=== PATIENT | female | born 1960 | race American Indian/Alaskan Native ===

== ENCOUNTER 2016-09-27 06:57 | Day surgery (SDC) | payer OTHER, MEDICARE ==
[~2016-09-27 06:57] MED LIST: ANCEF/STERILE WATER 2 GM/20 ML 2 GM/20 ML SYRINGE IV NR; NACL 0.9% 1000 ML 1,000 ML IV SCH
[2016-09-27 08:00] LABS: Hematocrit 25.7 % (30.3-42.9); Hemoglobin 8.4 gm/dl (10.1-14.3); Mean Corpuscular HGB Conc 33 % (30-34); Mean Corpuscular Hemoglobin 31 pg (28-32); Mean Corpuscular Volume 94 fl (79-97); Platelet Count 358 K/mm3 (140-440); Red Blood Count 2.73 M/mm3 (3.65-5.03); White Blood Count 4.8 K/mm3 (4.5-11.0)
[2016-09-27] MEDS ORDERED: NACL 0.9% 500 ML 500 ML IV SCH (08:00)
[2016-09-27 08:06] LABS: Red Cell Distribution Width 24.1 % (13.2-15.2)
[2016-09-27 08:13] LABS: INR 4.06 (0.87-1.13)
[2016-09-27 08:14] LABS: Partial Thromboplastin Time 44.6 Sec. (24.2-36.6)
[2016-09-27 08:15] LABS: Anion Gap 14 mmol/L; BUN/Creatinine Ratio 11.66; Blood Urea Nitrogen 7 mg/dL (7-17); Calcium 8.3 mg/dL (8.4-10.2); Carbon Dioxide 26 mmol/L (22-30); Chloride 108.6 mmol/L (98-107); Glucose 127 mg/dL (65-100); Potassium 3.3 mmol/L (3.6-5.0); Sodium 145 mmol/L (137-145)
[2016-09-27] MEDS ORDERED: HEPARIN 10,000 UNITS/10 ML ONE (09:11)
[2016-09-27] MEDS ORDERED: XYLOCAINE 2% INFILTRATI ONE (09:11)
[2016-09-27] MEDS ORDERED: HEPARIN/NS 5000 UNIT/500ML(CATH LAB) 1,000 ML IR ONE (09:11)
[2016-09-27] MEDS ORDERED: SUBLIMAZE ONE ×2 (09:12→10:17)
[2016-09-27] MEDS ORDERED: VERSED ONE (09:12)
--- NOTE | 2016-09-27 10:31 | Short Stay Summary ---
Short Stay Documentation Date of service: 09/27/16 Narrative H&P: See H&P - History H&P: obtained from office - Allergies and Medications Current Medications: Allergies banana Allergy (Verified 08/02/16 07:33) Rash peanut Allergy (Verified 08/02/16 07:33) Rash Home Medications Medication Instructions Recorded Confirmed Last Taken Type Insulin Lispro [HumaLOG VIAL] 3 unit SQ AC 08/02/16 09/27/16 09/26/16 History Lipase/Protease/Amylase [Creon Dr 2 tab PO AC 08/02/16 09/27/16 09/26/16 History 24,000 Units Capsule] Pegfilgrastim [Neulasta] 6 mg SQ QMONTH 08/02/16 09/27/16 08/27/16 History Sucralfate 1 tab PO AC 08/02/16 09/27/16 09/26/16 History Potassium Chloride [Klor-Con M20] 20 meq PO DAILY 09/27/16 09/27/16 09/20/16 History Rivaroxaban [Xarelto] 10 mg PO QDAY 09/27/16 09/27/16 09/27/16 History Active Medications Cefazolin Sodium (Ancef/Sterile Water 2 Gm/20 Ml) 2 gm in 20 mls @ 80 mls/hr IV PREOP NR PRN Reason: Protocol Stop: 09/27/16 23:59 Sodium Chloride (Nacl 0.9% 500 Ml) 500 mls @ 50 mls/hr IV DIRECT KIRSTEN Last Admin: 09/27/16 08:09 Dose: 50 mls/hr - Brief post op/procedure progress note Date of procedure: 09/27/16 Pre-op diagnosis: Bilateral Lower Extremity Swelling Post-op diagnosis: same Procedure: 1. Ultrasound-Guided Access Left Femoral Vein 2. Ultrasound-Guided Access Right Femoral Vein 3. Bilateral Lower Extremity Venogram With Inferior Vena Cavogram 4. Angioplasty and Stent of Right Common Iliac Vein with 18 x 90 Wall Stent and 14 x 40 Balloon 5. Angioplasty and Stent of Left Common Iliac Vein with 18 x 90 Wall Stent and 16 x 40 Balloon 6. Angioplasty and Stent of Left External Leg Vein With 18 x 60 Wall Stent and 16 x 40 Balloon 7. Radiological Supervision with Interpretation Anesthesia: local, other (IV sedation) Surgeon: DU RODRÍGUEZ Estimated blood loss: minimal Pathology: none Condition: stable - Disposition Condition at discharge: Good Disposition: DISCHARGED TO HOME OR SELFCARE Short Stay Discharge Plan Activity: other (no strenuous activity for 24 hours) Wound: remove dressing (24 hours) Follow up with: DU RODRÍGUEZ MD [Staff Physician] - 14 Days Prescriptions: Oxycodone HCl/Acetaminophen [Percocet 7.5/325 mg] 1 each PO Q6HR PRN #60 tablet PRN Reason: Pain
--- NOTE | 2016-09-27 10:35 | Operative Report ---
Operative Report Operative Report: Date of Procedure: 09/27/2016 Pre-operative Diagnosis: Bilateral Lower Extremity Swelling Post-operative Diagnosis: Same Procedure(s): 1. Ultrasound-Guided Access Left Femoral Vein 2. Ultrasound-Guided Access Right Femoral Vein 3. Bilateral Lower Extremity Venogram With Inferior Vena Cavogram 4. Angioplasty and Stent of Right Common Iliac Vein with 18 x 90 Wall Stent and 14 x 40 Balloon 5. Angioplasty and Stent of Left Common Iliac Vein with 18 x 90 Wall Stent and 16 x 40 Balloon 6. Angioplasty and Stent of Left External Leg Vein With 18 x 60 Wall Stent and 16 x 40 Balloon 7. Radiological Supervision with Interpretation Surgeon: Alexi Camargo M.D. 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 She initially presented with right lower extremity swelling and was found to have significant stenosis of her right external leg vein that was treated with stenting. There resulted in complete resolution of her swelling however she represented with bilateral large swelling and was found to have a left large of any DVT. She has since been placed on anticoagulation and is in need of a venogram to evaluate for any further compression of the veins. She was given the risk, benefits, and alternative procedures and consented to procedure. Venogram Findings: The right lower extremity venogram demonstrated the previously placed stents and external iliac veins were widely patent. She had approximately 50% narrowing of the right common iliac vein. The left lower extremity venogram demonstrated approximately 50% narrowing of the external iliac vein and approximately 50% narrowing of the distal common iliac vein. The inferior vena cava was widely patent without evidence of stenosis or thrombus. After intervention the veins were widely patent with brisk flow of contrast and no residual stenosis. Description of Procedure: The patient was brought to the [facility] and laid in a supine position. After she was adequately sedated her bilateral thighs were prepped and draped in normal sterile fashion. Ultrasound was used to identify the femoral vein in the upper thigh and the overlying skin and soft tissue was anesthetized with lidocaine. A small stab incision was made and then an access needle was used ultrasound guidance to the right femoral vein and a Bentson wire was advanced into the IVC under fluoroscopy. The same procedure was performed to access the vein and the left thigh. A venogram was performed bilaterally with the previously described findings. The initially placed 5 [place] sheath was then exchanged for a 10 [place] sheath and a 14 x 40 balloon was used to predilate the right common iliac vein. A 16 x 40 balloon was then used to predilate the left common iliac as well as external iliac veins. I then simultaneously deployed 18 x 90 Wallstents extending from the distal inferior vena cava into each common iliac vein. On the right the 18 x 90 stent extended into the previously placed external iliac stents. I then placed an additional 18 x 60 stent on the left extending from the initial stent down to the common femoral vein. I then posted the stents on the right with the 14 x 40 balloon and the stents placed on the left were postdilated with the 16 x 40 balloon. The final venogram demonstrated no residual stenosis and brisk flow of contrast bilaterally. All wires and sheaths were removed and pressure was held to achieve hemostasis. The patient tolerated the procedure well. All sponge, needle, and instrument counts were correct. The patient was taken to the recovery area in stable condition.
[2016-09-27] MEDS ORDERED: PERCOCET 5/325 ONE (11:27)
[2016-09-27] MEDS ORDERED: PERCOCET 5/325 PO ONE (11:37)
[2016-09-27 15:08] VITALS: BP 130/70
--- NOTE | 2016-09-30 07:59 | Vascular Lab Report ---
MISCELLANEOUS VESSEL IDENTIFICATION: COMMENTS ON THE SCAN: The right common femoral vein was identified and under real-time ultrasound guidance was cannulated. IMPRESSION: Successful ultrasound guided vein cannulation.
--- NOTE | 2016-09-30 08:00 | Vascular Lab Report ---
MISCELLANEOUS VESSEL IDENTIFICATION: COMMENTS ON THE SCAN: The left common femoral vein was identified and under real-time ultrasound guidance was cannulated. IMPRESSION: Successful ultrasound guided vein cannulation.
== END 2016-09-27 12:45 | disposition home or self-care (01) ==
LOC: OPU 06:57
PROVIDERS: ATTEND Surgery Vascular Surgery
DX: I87.1 Compression of vein (principal); E11.9 Type 2 diabetes mellitus without complications; Z85.9 Personal history of malignant neoplasm, unspecified; Z90.49 Acquired absence of other specified parts of digestive tract; Z90.411 Acquired partial absence of pancreas; Z98.890 Other specified postprocedural states; Z79.01 Long term (current) use of anticoagulants; Z79.4 Long term (current) use of insulin; Z79.899 Other long term (current) drug therapy; Z83.3 Family history of diabetes mellitus; Z80.9 Family history of malignant neoplasm, unspecified
CPT/HCPCS: 36010; 36415; 37238; 37239; 75822; 75825; 76937; 80048; 85027; 85610; 85730; C1725; C1769; C1876; C1894; J1644; J2250; J3010; J7040; Q9967

== ENCOUNTER 2017-03-21 09:17 | Day surgery (SDC) | payer OTHER, MEDICARE ==
[2017-03-21 11:01] LABS: Basophils % (Auto) 0.9 % (0.0-1.8); Eosinophils % (Auto) 2.9 % (0.0-4.3); Hematocrit 30.5 % (30.3-42.9); Hemoglobin 10.2 gm/dl (10.1-14.3); Mean Corpuscular HGB Conc 33 % (30-34); Mean Corpuscular Hemoglobin 30 pg (28-32); Mean Corpuscular Volume 91 fl (79-97); Platelet Count 236 K/mm3 (140-440); Red Blood Count 3.35 M/mm3 (3.65-5.03); Red Cell Distribution Width 15.2 % (13.2-15.2); White Blood Count 5.2 K/mm3 (4.5-11.0)
[2017-03-21 11:32] LABS: Anion Gap 14 mmol/L; BUN/Creatinine Ratio 20; Blood Urea Nitrogen 10 mg/dL (7-17); Calcium 9.2 mg/dL (8.4-10.2); Carbon Dioxide 30 mmol/L (22-30); Chloride 97.9 mmol/L (98-107); Glucose 310 mg/dL (65-100); Sodium 138 mmol/L (137-145)
[2017-03-21] MEDS ORDERED: NOVOLOG SUB-Q ONE (11:42)
[2017-03-21] MEDS ORDERED: HEPARIN/NS 5000 UNIT/500ML(CATH LAB) 500 ML IR ONE ×2 (16:22→16:43)
[2017-03-21] MEDS ORDERED: VERSED ONE (16:23)
[2017-03-21] MEDS ORDERED: HEPARIN 10,000 UNITS/10 ML ONE (16:23)
[2017-03-21] MEDS ORDERED: SUBLIMAZE ONE (16:24)
[2017-03-21] MEDS ORDERED: XYLOCAINE 2% INFILTRATI ONE ×2 (16:24→16:51)
[2017-03-21] MEDS ORDERED: VERSED IV ONE ×2 (16:50→17:20)
[2017-03-21] MEDS ORDERED: SUBLIMAZE IV ONE ×2 (16:50→17:20)
--- NOTE | 2017-03-21 17:56 | Short Stay Summary ---
Short Stay Documentation Date of service: 03/21/17 Narrative H&P: See H&P - History H&P: obtained from office - Allergies and Medications Current Medications: Allergies banana Allergy (Verified 08/02/16 07:33) Rash peanut Allergy (Verified 08/02/16 07:33) Rash Home Medications Medication Instructions Recorded Confirmed Last Taken Type Insulin Lispro [HumaLOG VIAL] 3 unit SQ AC 08/02/16 03/21/17 03/21/17 05:00 History Lipase/Protease/Amylase [Creon Dr 2 tab PO AC 08/02/16 03/21/17 03/20/17 History 24,000 Units Capsule] 2 tab Sucralfate 1 tab PO AC 08/02/16 03/21/17 03/20/17 History 1gm Gabapentin [Gabapentin] 40 mg PO HS 03/21/17 03/21/17 03/20/17 History 40mg Omeprazole [Omeprazole] 40 mg PO DAILY 03/21/17 03/21/17 03/20/17 History 40mg - Brief post op/procedure progress note Date of procedure: 03/21/17 Pre-op diagnosis: History of Sarcoma with Right Leg Swelling Post-op diagnosis: same Procedure: 1. Ultrasound-Guided Access Right Femoral Vein 2. Diagnostic Right Lower Extremity Venogram 3. Angioplasty and Stent of Right Common Femoral Vein with 9 x 60 Lutonix Drug- Coated Balloon, 14 x 60 Wall Stent, and 14 x 40 Ballon 4. Radiological Supervision Interpretation Anesthesia: local, other (iv Sedation) Surgeon: DU RODRÍGUEZ Estimated blood loss: minimal Pathology: none Condition: stable - Disposition Condition at discharge: Good Disposition: DC-01 TO HOME OR SELFCARE Short Stay Discharge Plan Activity: other (no strenuous activity for 24 hours) Wound: keep clean and dry, remove dressing (24 hours) Follow up with: DU RODRÍGUEZ MD [Staff Physician] - 14 Days
--- NOTE | 2017-03-21 18:04 | Operative Report ---
Operative Report Operative Report: Date of Procedure: 03/21/2017 Pre-operative Diagnosis: History of Sarcoma with Right Lower Extremity Swelling Post-operative Diagnosis: Same Procedure(s): 1. Ultrasound-Guided Access Right Femoral Vein 2. Diagnostic Right Lower Extremity Venogram 3. Angioplasty and Stent of Right Common Femoral Vein with 9 x 60 Lutonix Drug- Coated Balloon, 14 x 60 Wall Stent, and 14 x 40 Ballon 4. Radiological Supervision Interpretation Surgeon: Alexi Camargo M.D. Engineer Technical Staff: None Anesthesia: Local and IV sedation EBL: Minimal Counts: Correct Complications: None Condition: Stable Findings: Approximately 80% stenosis of the common femoral vein just distal to the previously placed stent. After angioplasty and stent this was reduced to less than 20% residual stenosis with brisk flow of contrast to the stents. 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 She eventually require bilateral iliac stents to resolve bilateral edema. She had done well for several months but returned with complaints of right lower extremity swelling. She had an ultrasound that ruled out DVT so she was offered a venogram to evaluate for stenosis and possibly treat. She was given the risks, benefits, and alternative procedures and consented to the procedure. Description of Procedure: The patient was brought into the computer lab assistant in a supine position. After she was adequately sedated her right leg was prepped and draped in normal sterile fashion. Ultrasound was used to identify the superficial femoral vein in the mid thigh and the overlying skin and soft tissue was anesthetized with lidocaine. A small stab incision was made and an access needle was used ultrasound guidance to enter the femoral vein. A 0.035 J-wire was advanced into the common femoral vein and into the previously placed iliac stents under fluoroscopy. A 5 [place] sheath was placed by Seldinger technique. A right lower extremity venograms performed that demonstrated approximately 80% stenosis at the distal portion of the stent within the common femoral vein. The remainder of her stents including the right external iliac, right common iliac and distal inferior vena cava were widely patent. Initially the 5 [place] sheath was exchanged for an 8 [place] sheath also injected technique and the lesion was initially treated with an 8 x 40 balloon and then followed up with a 9 x 60 Lutonix Drug-Coated balloon. This resulted in residual stenosis of approximately 60% so decision was made to place a stent. I used a 14 x 60 wall stent that extended from the external iliac down to approximately 2 cm above the profunda vein. The stent was postdilated with a 14 x 40 balloon. The result was less than 20% residual stenosis. At this point all balloons and wires were removed. The sheath was removed and pressure was held to achieve hemostasis. The patient tolerated the procedure well. All sponge, needle, and instrument counts were correct. The patient was taken to the recovery area in stable condition.
[2017-03-21] MEDS ORDERED: FLUSH HEPARIN IV ONE (19:04)
[2017-03-21 19:37] VITALS: BP 137/70
== END 2017-03-21 19:35 | disposition home or self-care (01) ==
LOC: CATHLABREC 09:17
PROVIDERS: ATTEND Surgery Vascular Surgery
DX: I87.1 Compression of vein (principal); E11.9 Type 2 diabetes mellitus without complications; Z90.49 Acquired absence of other specified parts of digestive tract; Z98.890 Other specified postprocedural states; Z80.9 Family history of malignant neoplasm, unspecified; Z79.4 Long term (current) use of insulin; Z85.9 Personal history of malignant neoplasm, unspecified
CPT/HCPCS: 36415; 37238; 80048; 82962; 85025; 96372; C1725; C1876; C1894; J1642; J1644; J2250; J3010; J7030; J1815; Q9967

== ENCOUNTER 2017-04-21 08:43 | Day surgery (SDC) | payer OTHER, MEDICARE ==
[2017-04-21 09:49] LABS: Basophils % (Auto) 1.5 % (0.0-1.8); Eosinophils % (Auto) 2.5 % (0.0-4.3); Hematocrit 28.8 % (30.3-42.9); Hemoglobin 9.4 gm/dl (10.1-14.3); Mean Corpuscular HGB Conc 33 % (30-34); Mean Corpuscular Hemoglobin 30 pg (28-32); Mean Corpuscular Volume 92 fl (79-97); Platelet Count 277 K/mm3 (140-440); Red Blood Count 3.15 M/mm3 (3.65-5.03); Red Cell Distribution Width 16.5 % (13.2-15.2); White Blood Count 5.6 K/mm3 (4.5-11.0)
[2017-04-21] MEDS ORDERED: NACL 0.9% 500 ML 500 ML IV SCH (10:00)
[2017-04-21 10:17] LABS: INR 1.53 (0.87-1.13)
[2017-04-21 10:22] LABS: Partial Thromboplastin Time 128.1 Sec. (24.2-36.6)
[2017-04-21 10:44] LABS: Anion Gap 16 mmol/L; BUN/Creatinine Ratio 17; Blood Urea Nitrogen 10 mg/dL (7-17); Carbon Dioxide 29 mmol/L (22-30); Chloride 101.4 mmol/L (98-107); Glucose 307 mg/dL (65-100); Potassium 3.9 mmol/L (3.6-5.0); Sodium 142 mmol/L (137-145)
[2017-04-21] MEDS ORDERED: HEPARIN/NS 5000 UNIT/500ML(CATH LAB) 500 ML IR ONE ×3 (11:19→11:36)
[2017-04-21] MEDS ORDERED: XYLOCAINE 1% 20 mL ONE (11:20)
[2017-04-21] MEDS ORDERED: SUBLIMAZE ONE (11:20)
[2017-04-21] MEDS ORDERED: VERSED ONE (11:20)
[2017-04-21] MEDS ORDERED: XYLOCAINE 2% INFILTRATI ONE (11:21)
[2017-04-21] MEDS ORDERED: HEPARIN 10,000 UNITS/10 ML ONE (11:21)
--- NOTE | 2017-04-21 12:20 | Short Stay Summary ---
Short Stay Documentation Date of service: 04/21/17 Narrative H&P: See H&P - History H&P: obtained from office - Allergies and Medications Current Medications: Allergies banana Allergy (Verified 08/02/16 07:33) Rash peanut Allergy (Verified 08/02/16 07:33) Rash Home Medications Medication Instructions Recorded Confirmed Last Taken Type Insulin Lispro [HumaLOG VIAL] 3 unit SQ AC 08/02/16 04/21/17 04/20/17 History 3 units Lipase/Protease/Amylase [Creon Dr 2 tab PO AC 08/02/16 04/21/17 04/20/17 History 24,000 Units Capsule] 2 tab Sucralfate 1 tab PO AC 08/02/16 04/21/17 04/20/17 History 1 tab Gabapentin [Gabapentin] 40 mg PO HS 03/21/17 04/21/17 04/20/17 History 40mg Omeprazole [Omeprazole] 40 mg PO DAILY 03/21/17 04/21/17 04/20/17 History 40mg Apixaban [Eliquis] 5 mg PO DAILY 04/21/17 04/21/17 04/20/17 History 5mg Active Medications Sodium Chloride (Nacl 0.9% 500 Ml) 500 mls @ 50 mls/hr IV DIRECT KIRSTEN Last Admin: 04/21/17 10:14 Dose: 50 mls/hr - Brief post op/procedure progress note Date of procedure: 04/21/17 Pre-op diagnosis: RLE Swelling With Acute Femoral DVT Post-op diagnosis: same Procedure: 1. Ultrasound-Guided Access Right Popliteal Vein 2. Diagnostic Right Lower Extremity Venogram (Patient Had a Clinical Change) 3. Percutaneous Mechanical Thrombectomy of Right Femoral Vein Using AngioJet Catheter and Trertolla Catheter 4. Angioplasty of Right Femoral Vein Using 10 x 4 Lutonix Drug-Coated Balloon 5. Radiologic Supervision with Interpretation Anesthesia: local, other (IV sedation) Surgeon: DU RODRÍGUEZ Estimated blood loss: minimal Pathology: none Condition: stable - Disposition Condition at discharge: Good Disposition: DC-01 TO HOME OR SELFCARE Short Stay Discharge Plan Activity: other (No heavy lifting for 24 hours) Wound: remove dressing (24 hours) Follow up with: DU RODRÍGUEZ MD [Staff Physician] - 14 Days
--- NOTE | 2017-04-21 12:29 | Operative Report ---
Operative Report Operative Report: Date of Procedure: 04/21/2017 Pre-operative Diagnosis: Right Lower Extremity Swelling with Acute Femoral DVT Post-operative Diagnosis: Same Procedure(s): 1. Ultrasound-Guided Access Right Popliteal Vein 2. Diagnostic Right Lower Extremity Venogram (Patient Had a Clinical Change) 3. Percutaneous Mechanical Thrombectomy of Right Femoral Vein Using AngioJet Catheter and Trertolla Catheter 4. Angioplasty of Right Femoral Vein Using 10 x 4 Lutonix Drug-Coated Balloon 5. Radiologic Supervision with Interpretation Surgeon: Alexi Camargo M.D. Assistant Signal Maintainer: None Anesthesia: Local and IV sedation EBL: Minimal Counts: Correct Complications: None Condition: Stable Findings: Thrombus in the distal right common femoral vein extending into the distal portion of previously placed stents. The remainder of the stents including the external iliac and common iliac were widely patent. After thrombectomy there was roughly 60% stenosis in the vein just below the level stents. This was treated with a drug-coated balloon and result of less than 5% residual stenosis. Specimen: None Indication: The patient is a 56-year-old female with a history of sarcoma status post resection. She has required multiple angioplasty and stents of her right lower extremity secondary to venous stenosis and symptomatic swelling. Her most recent intervention was approximately 3-4 weeks ago and she had complete resolution of her symptoms however she presented to the office with complaints of recurrent swelling and had an ultrasound that demonstrated what appeared to be thrombus in the common femoral vein and within her distal stent. She was set up for a diagnostic venogram with possible intervention. She was given the risk, benefits, and alternative procedures and consented to procedure. Description of Procedure: The patient was brought to the paving and surfacing labourer and laid in prone position. After she was adequately sedated her right leg was prepped and draped in normal sterile fashion. Ultrasound was used to identify the popliteal vein behind the knee and the overlying skin and soft tissue was anesthetized with lidocaine. Some identify that the vein was patent without any evidence of thrombus. Small stab incision made then an 18-gauge needle was used with ultrasound guidance into the vein and a 0.035 Bentson wire was advanced into the vein. A 5 [place] sheath was placed by Seldinger technique. A venogram was performed through the sheath that demonstrated the popliteal artery was patent however there was near occlusive thrombus in the distal common femoral vein. The thrombus extended into the distal portion of a stent. The profunda vein appeared to be widely patent. The external iliac and common iliac veins were both widely patent. I advanced a 6 [place] AngioJet and performed percutaneous mechanical thrombectomy of the thrombus. This reduced the thrombus to approximately 50% with some residual thrombus within the stent. I then used the Trertolla Device to morcellate the thrombus and then aspirated the remainder of thrombus with the AngioJet catheter. The result was near complete resolution of thrombus however there was approximate 60% stenosis of the femoral vein just distal to the stent. I performed angioplasty of the distal portion stent as well as the common femoral vein using a 10 x 4 Lutonix Drug-Coated Balloon. The final venogram demonstrated a widely patent common femoral vein and distal stent with less than 5% residual stenosis. At this point the wire was removed and the sheath was removed and pressure was held to achieve hemostasis. The patient tolerated the procedure well. All sponge, needle, and instrument counts were correct. The patient was taken to the recovery area in stable condition.
[2017-04-21] MEDS ORDERED: FLUSH HEPARIN IV ONE (13:15)
[2017-04-21 13:57] VITALS: BP 179/93
--- NOTE | 2017-04-22 11:48 | Vascular Lab Report ---
MISCELLANEOUS VESSEL IDENTIFICATION: COMMENTS ON THE SCAN: The right popliteal vein was identified and under real-time ultrasound guidance was cannulated. IMPRESSION: Successful ultrasound guided vein cannulation.
== END 2017-04-21 14:20 | disposition home or self-care (01) ==
LOC: CATHLABREC 08:43
PROVIDERS: ATTEND Surgery Vascular Surgery
DX: T82.868A Thrombosis due to vascular prosthetic devices, implants and grafts, initial encounter (principal); I82.411 Acute embolism and thrombosis of right femoral vein; I87.1 Compression of vein; E11.9 Type 2 diabetes mellitus without complications; Z79.4 Long term (current) use of insulin; Z79.899 Other long term (current) drug therapy; Z85.831 Personal history of malignant neoplasm of soft tissue; Z90.49 Acquired absence of other specified parts of digestive tract; Z98.890 Other specified postprocedural states; Z91.018 Allergy to other foods; Z80.9 Family history of malignant neoplasm, unspecified; Y83.1 Surgical operation with implant of artificial internal device as the cause of abnormal reaction of the patient, or of later complication, without mention of misadventure at the time of the procedure
CPT/HCPCS: 36415; 37187; 37248; 75820; 76937; 80048; 82962; 85025; 85610; 85730; 99156; 99157; C1757; C1769; C1894; J1642; J1644; J2250; J3010; J7040; Q9967

== ENCOUNTER 2017-10-22 11:53 | Inpatient (IN) | payer OTHER, MEDICARE ==
--- NOTE | 2017-10-22 12:11 | Emergency Department Report ---
ED Neuro Deficit HPI - General Chief Complaint: Neuro Symptoms/Deficit Stated Complaint: POSSIBLE STROKE Time Seen by Provider: 10/22/17 12:07 Source: patient, EMS (ems notes not available at time of chart dictation), RN notes reviewed, old records reviewed Mode of arrival: Stretcher Limitations: Physical Limitation - History of Present Illness Initial Comments: This is a 57-year-old female who is previously unknown to this provider, has a history of claudication, diabetes, right lower extremity mechanical thrombectomy , currently on systemic anticoagulation. Patient is uncertain if she is taking Coumadin or eliquis She is also uncertain when she last took her anticoagulation. She further reports that she was admitted to [facility] within the past month for "bleeding inside my belly." The patient is brought to the hospital by EMS for evaluation for possible code stroke. As per EMS, the last known well time is at 8 o'clock in the morning. The patient does not know when her last known well time is. The stroke symptoms were described as left-sided weakness and speech disturbance. These have resolved upon arrival to the ER. The patient denies headache, neck pain, chest pain, abdominal pain, shortness of breath. The patient indicates that she has chronic right lower extremity pain. -: Gradual Location: speech, left arm, left leg Presenting Symptoms: Present: Weak/Paralyzed One Side, Unable to Speak Clearly History of same: No Place: home Severity: Unable to Determine Improves With: none Worsens With: none On Anticoagulants: Yes Context: other (as per history of present illness) Associated Symptoms: malise, weakness. denies: chest pain, cough, diaphoresis, fever/chills, nausea/vomiting, vertigo, seizures, shortness of breath, syncope - Related Data Home Medications: Home Medications Medication Instructions Recorded Confirmed Last Taken Insulin Lispro [HumaLOG VIAL] 3 unit SQ AC 08/02/16 04/21/17 04/20/17 3 units Lipase/Protease/Amylase [Creon Dr 2 tab PO AC 08/02/16 04/21/17 04/20/17 24,000 Units Capsule] 2 tab Sucralfate 1 tab PO AC 08/02/16 04/21/17 04/20/17 1 tab Gabapentin 40 mg PO HS 03/21/17 04/21/17 04/20/17 40mg Omeprazole 40 mg PO DAILY 03/21/17 04/21/17 04/20/17 40mg Apixaban [Eliquis] 5 mg PO DAILY 04/21/17 04/21/17 04/20/17 5mg Allergies/Adverse Reactions: Allergies Allergy/AdvReac Type Severity Reaction Status Date / Time banana Allergy Rash Verified 08/02/16 07:33 peanut Allergy Rash Verified 08/02/16 07:33 ED Review of Systems ROS: Stated complaint: POSSIBLE STROKE Other details as noted in HPI Comment: Unobtainable due to pts medical conditions ED Past Medical Hx - Past Medical History Previous Medical History?: Yes Hx Diabetes: Yes (I) Hx GERD: Yes - Surgical History Past Surgical History?: Yes Hx Cholecystectomy: Yes - Social History Smoking Status: Unknown if ever smoked Substance Use Type: None - Medications Home Medications: Home Medications Medication Instructions Recorded Confirmed Last Taken Type Insulin Lispro [HumaLOG VIAL] 3 unit SQ AC 08/02/16 04/21/17 04/20/17 History 3 units Lipase/Protease/Amylase [Creon Dr 2 tab PO AC 08/02/16 04/21/17 04/20/17 History 24,000 Units Capsule] 2 tab Sucralfate 1 tab PO AC 08/02/16 04/21/17 04/20/17 History 1 tab Gabapentin 40 mg PO HS 03/21/17 04/21/17 04/20/17 History 40mg Omeprazole 40 mg PO DAILY 03/21/17 04/21/17 04/20/17 History 40mg Apixaban [Eliquis] 5 mg PO DAILY 04/21/17 04/21/17 04/20/17 History 5mg ED Neuro Physical Exam - General Limitations: Physical Limitation General appearance: alert, in no apparent distress Suspected Stroke: Yes - Head Head exam: Present: atraumatic, normocephalic - Eye Eye exam: Present: normal appearance, PERRL, other (the patient will move her eyes bilaterally to the left to the right. However she will not open up her eyelids for me to directly examine superior and inferiorly directed movement) - ENT ENT exam: Present: normal exam, normal orophraynx, mucous membranes moist, normal external ear exam - Neck Neck exam: Present: normal inspection, full ROM - Respiratory Respiratory exam: Present: normal lung sounds bilaterally. Absent: respiratory distress - Cardiovascular Cardiovascular Exam: Present: regular rate, normal rhythm, normal heart sounds. Absent: bradycardia, tachycardia, irregular rhythm, systolic murmur, diastolic murmur, rubs, gallop - GI/Abdominal GI/Abdominal exam: Present: soft, normal bowel sounds. Absent: distended, tenderness, guarding, rebound, rigid, pulsatile mass - Extremities Exam Extremities exam: Present: normal inspection, full ROM, pedal edema. Absent: calf tenderness - Back Exam Back exam: Present: normal inspection. Absent: tenderness, CVA tenderness (R), paraspinal tenderness, vertebral tenderness - Neurological Exam Neurological exam: Present: alert (there is no facial droop. The tongue is midline. Hearing is intact bilaterally. Facial sensation is intact to light touch in the bilateral V1, V2, V3 distribution. Patient noted to be moving abduction, adduction in the bilateral eyes. The patient will not elevate or depressed both eyes, uncertain if this is effort related.), oriented X3, other ( there is 4 out of 5 strength in the bilateral upper and lower extremities. Uncertain if this is effort related. Sensation is intact to light touch in the bilateral upper and lower extremities.) - NIHSS Assessment Interval: Baseline 1a. Level of Consciousness: alert 1b. LOC Questions: answers correctly 1c. LOC Commands: performs tasks correctly 2. Best Gaze: normal 3. Visual: no visual loss 4. Facial Palsy: normal symmetrical movement 5b. Motor Arm Right: drift 5a. Motor Arm Left: drift 6a. Motor Leg Left: drift 6b. Motor Leg Right: drift 7. Limb Ataxia: absent 8. Sensory: normal 9. Best Language: no aphasia 10. Dysarthria: normal 11. Extinction/Inattention: visual/tactile inattention Total Score: 5 Stroke Severity: Moderate Stroke - Psychiatric Psychiatric exam: Present: normal affect, normal mood - Skin Skin exam: Present: warm, dry, intact, normal color. Absent: rash ED Course Vital Signs 10/22/17 10/22/17 10/22/17 12:03 12:18 12:30 Temperature 97.9 F Pulse Rate 69 70 79 Respiratory 19 16 18 Rate Blood Pressure Blood Pressure 109/53 [Left] O2 Sat by Pulse 100 100 99 Oximetry 10/22/17 10/22/17 12:45 12:59 Temperature Pulse Rate 82 Respiratory 20 19 Rate Blood Pressure 126/57 Blood Pressure [Left] O2 Sat by Pulse 99 100 Oximetry - Reevaluation(s) Reevaluation #1: 10/22/17 12:26 Differential diagnosis, including but not limited to: Stroke, transient ischemic attack, conversion disorder, electrolyte derangements Assessment and plan: 57-year-old female, with symptoms that started at 8:00 in the morning, history of belly bleed last month by her history, currently on systemic anticoagulation, who is not a TPA candidate for all of these reasons, this was discussed with consulting stroke neurology, Dr. Coello. He recommends emergent CT angiogram of the head and neck to assess for large vessel occlusion and requests call back once the results have returned. A noncontrast CT scan of the brain was negative Reevaluation #2: 10/22/17 14:50 Unable to obtain 20-gauge IV access to obtain CT angiogram of the head and neck. We obtained an MRI of the brain, and MR angiogram of the brain, negative for stroke, negative for large vessel occlusion. Patient will be admitted for observation. The Hospital physician has been paged. Reevaluation #3: 10/22/17 15:02 The Hospital physician, Dr. Carbajal accepted the patient to his medical service. The case was also rediscussed with consulting stroke neurology, Dr. Coello, who agreed with plan for admission for observation, echocardiogram, duplex. - Procedure Description Procedures done: Attempted placement of left internal jugular 3 inch Angiocath using ultrasound guidance since difficult tell technique. The area was prepped with Betadine, and had sterile drapes applied. The area was anesthetized with 5 mL of 1% lidocaine with epinephrine. Angiocath was inserted into the skin, but was unable to cannulate the internal jugular vein. The procedure was aborted. The patient tolerated the procedure well. - Lab Data Result diagrams: 10/22/17 12:21 10/22/17 12:21 Lab Results 10/22/17 10/22/17 10/22/17 Range/Units 12:21 12:21 12:21 WBC 8.8 (4.5-11.0) K/mm3 RBC 2.78 L (3.65-5.03) M/mm3 Hgb 7.5 L (10.1-14.3) gm/dl Hct 22.9 L (30.3-42.9) % MCV 83 (79-97) fl MCH 27 L (28-32) pg MCHC 33 (30-34) % RDW 20.1 H (13.2-15.2) % Plt Count 415 (140-440) K/mm3 Add Manual Diff Complete Total Counted 100 Seg Neuts % (Manual) 65.0 (40.0-70.0) % Band Neutrophils % 1.0 % Lymphocytes % (Manual) 27.0 (13.4-35.0) % Reactive Lymphs % (Man) 0 % Monocytes % (Manual) 3.0 (0.0-7.3) % Eosinophils % (Manual) 2.0 (0.0-4.3) % Basophils % (Manual) 1.0 (0.0-1.8) % Metamyelocytes % 1.0 % Myelocytes % 0 % Promyelocytes % 0 % Blast Cells % 0 % Nucleated RBC % 1.0 H (0.0-0.9) % Seg Neutrophils # Man 5.7 (1.8-7.7) K/mm3 Band Neutrophils # 0.1 K/mm3 Lymphocytes # (Manual) 2.4 (1.2-5.4) K/mm3 Abs React Lymphs (Man) 0.0 K/mm3 Monocytes # (Manual) 0.3 (0.0-0.8) K/mm3 Eosinophils # (Manual) 0.2 (0.0-0.4) K/mm3 Basophils # (Manual) 0.1 (0.0-0.1) K/mm3 Metamyelocytes # 0.1 K/mm3 Myelocytes # 0.0 K/mm3 Promyelocytes # 0.0 K/mm3 Blast Cells # 0.0 K/mm3 WBC Morphology Not Reportable Hypersegmented Neuts Not Reportable Hyposegmented Neuts Not Reportable Hypogranular Neuts Not Reportable Smudge Cells Not Reportable Toxic Granulation Not Reportable Toxic Vacuolation Not Reportable Dohle Bodies Not Reportable Pelger-Huet Anomaly Not Reportable Maddy Rods Not Reportable Platelet Estimate Appears normal Clumped Platelets Not Reportable Plt Clumps, EDTA Not Reportable Large Platelets Few Giant Platelets Not Reportable Platelet Satelliting Not Reportable Plt Morphology Comment Not Reportable RBC Morphology Not Reportable Dimorphic RBCs Not Reportable Polychromasia Not Reportable Hypochromasia 2+ Poikilocytosis 3+ Anisocytosis 2+ Microcytosis 2+ Macrocytosis Not Reportable Spherocytes Not Reportable Pappenheimer Bodies Not Reportable Sickle Cells Not Reportable Target Cells 1+ Tear Drop Cells Not Reportable Ovalocytes 1+ Helmet Cells Not Reportable Harden-Blanding Bodies Not Reportable [place] Rings Not Reportable [place] Cells 1+ Bite Cells Not Reportable Crenated Cell Not Reportable Elliptocytes 1+ Acanthocytes (Spur) 2+ Rouleaux Not Reportable Hemoglobin C Crystals Not Reportable Schistocytes Few Malaria parasites Not Reportable Bernard Bodies Not Reportable Hem Pathologist Commnt No PT 24.8 H (12.2-14.9) Sec. INR 2.09 H (0.87-1.13) APTT 34.0 (24.2-36.6) Sec. Thrombin Time (15.1-19.6) Sec. Sodium 143 (137-145) mmol/L Potassium 4.1 (3.6-5.0) mmol/L Chloride 103.7 (98-107) mmol/L Carbon Dioxide 26 (22-30) mmol/L Anion Gap 17 mmol/L BUN 10 (7-17) mg/dL Creatinine 0.8 (0.7-1.2) mg/dL Estimated GFR > 60 ml/min BUN/Creatinine Ratio 13 % Glucose 184 H (65-100) mg/dL Calcium 9.2 (8.4-10.2) mg/dL Troponin T < 0.010 (0.00-0.029) ng/mL 10/22/17 Range/Units 12:21 WBC (4.5-11.0) K/mm3 RBC (3.65-5.03) M/mm3 Hgb (10.1-14.3) gm/dl Hct (30.3-42.9) % MCV (79-97) fl MCH (28-32) pg MCHC (30-34) % RDW (13.2-15.2) % Plt Count (140-440) K/mm3 Add Manual Diff Total Counted Seg Neuts % (Manual) (40.0-70.0) % Band Neutrophils % % Lymphocytes % (Manual) (13.4-35.0) % Reactive Lymphs % (Man) % Monocytes % (Manual) (0.0-7.3) % Eosinophils % (Manual) (0.0-4.3) % Basophils % (Manual) (0.0-1.8) % Metamyelocytes % % Myelocytes % % Promyelocytes % % Blast Cells % % Nucleated RBC % (0.0-0.9) % Seg Neutrophils # Man (1.8-7.7) K/mm3 Band Neutrophils # K/mm3 Lymphocytes # (Manual) (1.2-5.4) K/mm3 Abs React Lymphs (Man) K/mm3 Monocytes # (Manual) (0.0-0.8) K/mm3 Eosinophils # (Manual) (0.0-0.4) K/mm3 Basophils # (Manual) (0.0-0.1) K/mm3 Metamyelocytes # K/mm3 Myelocytes # K/mm3 Promyelocytes # K/mm3 Blast Cells # K/mm3 WBC Morphology Hypersegmented Neuts Hyposegmented Neuts Hypogranular Neuts Smudge Cells Toxic Granulation Toxic Vacuolation Dohle Bodies Pelger-Huet Anomaly Maddy Rods Platelet Estimate Clumped Platelets Plt Clumps, EDTA Large Platelets Giant Platelets Platelet Satelliting Plt Morphology Comment RBC Morphology Dimorphic RBCs Polychromasia Hypochromasia Poikilocytosis Anisocytosis Microcytosis Macrocytosis Spherocytes Pappenheimer Bodies Sickle Cells Target Cells Tear Drop Cells Ovalocytes Helmet Cells Harden-Blanding Bodies [place] Cells Bite Cells Crenated Cell Elliptocytes Acanthocytes (Spur) Rouleaux Hemoglobin C Crystals Schistocytes Malaria parasites Bernard Bodies Hem Pathologist Commnt PT (12.2-14.9) Sec. INR (0.87-1.13) APTT (24.2-36.6) Sec. Thrombin Time 18.0 (15.1-19.6) Sec. Sodium (137-145) mmol/L Potassium (3.6-5.0) mmol/L Chloride (98-107) mmol/L Carbon Dioxide (22-30) mmol/L Anion Gap mmol/L BUN (7-17) mg/dL Creatinine (0.7-1.2) mg/dL Estimated GFR ml/min BUN/Creatinine Ratio % Glucose (65-100) mg/dL Calcium (8.4-10.2) mg/dL Troponin T (0.00-0.029) ng/mL - Radiology Data Radiology results: report reviewed Noncontrast CT scan of the brain is negative. MRI of the brain is negative. MR angiogram of the brain is negative. - Core Measures Measure Exclusions: not indicated - Thrombolytic Inclusion/Exclusion Thrombolytic Exclusion Criteria: Symptom Onset > 3 Hours Thrombolytic Contraindications: INR > 1.7 seconds, GI or Other Bleeding Critical care attestation.: If time is entered above; I have spent that time in minutes in the direct care of this critically ill patient, excluding procedure time. ED Disposition Clinical Impression: TIA (transient ischemic attack) Qualifiers: Transient cerebral ischemia type: other Qualified Code(s): G45.8 - Other transient cerebral ischemic attacks and related syndromes Disposition: DC-09 OP ADMIT IP TO THIS HOSP Is pt being admited?: Yes Does the pt Need Aspirin: Yes Condition: Good Referrals: PRIMARY CARE, [Primary Care Provider] - 3-5 Days
--- NOTE | 2017-10-22 12:22 | Cat Scan Report ---
CT HEAD WITHOUT CONTRAST: HISTORY: Neurological deficit. TECHNIQUE: Sequential 2.5mm CT images. COMPARISON: none. FINDINGS: Cerebral Parenchyma: Within normal limits. Cerebellum: Within normal limits. Brainstem: Within normal limits. Ventricles: Normal. Sella: Normal. Extra-axial spaces: Normal. Basal Cisterns: Normal. Intracranial Hemorrhage: None. Midline Shift: None. Calvarium: Normal. Sinuses: Normal. Mastoid Air Cells: Normal. Visualized Orbits: Normal. IMPRESSION: Cranial CT scan within normal limits.
[2017-10-22 12:42] LABS: Hematocrit 22.9 % (30.3-42.9); Hemoglobin 7.5 gm/dl (10.1-14.3); Mean Corpuscular HGB Conc 33 % (30-34); Mean Corpuscular Hemoglobin 27 pg (28-32); Mean Corpuscular Volume 83 fl (79-97); Platelet Count 415 K/mm3 (140-440); Red Blood Count 2.78 M/mm3 (3.65-5.03)
[2017-10-22 12:54] LABS: Red Cell Distribution Width 20.1 % (13.2-15.2)
[2017-10-22 12:56] LABS: INR 2.09 (0.87-1.13)
[2017-10-22 13:18] LABS: BUN/Creatinine Ratio 13; Blood Urea Nitrogen 10 mg/dL (7-17); Calcium 9.2 mg/dL (8.4-10.2); Hemolysis Index 7
[2017-10-22 13:58] LABS: Anisocytosis 2+; Band Neutrophils # (Manual) 0.1 K/mm3; Total Cells Counted 100
[2017-10-22 13:59] LABS: Acanthocytes 2+; Burr Cells 1+; Hypochromasia 2+; Large Platelets Few; Ovalocytes 1+; Poikilocytosis 3+; Schistocytes Few; Target Cells 1+
--- NOTE | 2017-10-22 14:38 | Magnetic Resonance Report ---
MRI OF THE BRAIN WITHOUT CONTRAST: HISTORY: CVA PROCEDURE: Multiplanar, multisequence MR imaging of the brain without IV contrast was performed. FINDINGS: Mild nonspecific chronic periventricular white matter changes are identified. Otherwise, the brain parenchyma signal intensity and its burgess white interface are within normal limits on all sequences. No evidence for acute ischemia, hemorrhage or mass. No chronic infarct or extra-axial fluid collection. The midline structures are central. The basal cisterns are patent. Normal ventricular size. The orbital cavities and sella turcica demonstrate no abnormality. The visualized paranasal sinuses and mastoid air cells are well aerated. IMPRESSION: No acute intracranial process is identified. Nonspecific chronic white matter changes.
--- NOTE | 2017-10-22 14:39 | Magnetic Resonance Report ---
MRA HEAD WITHOUT CONTRAST HISTORY: CVA. [id number] imaging with MIP reformations of the [place] is submitted. The arteries appear widely patent and free of hemodynamically significant stenosis, aneurysm or dissection. The right A1 segment is hypoplastic. There is filling of the right A2 segment via a a patent anterior communicating artery. IMPRESSION: Normal variant MRA head.
[2017-10-22] MEDS ORDERED: BABY ASPIRIN PO ONE (14:52)
--- NOTE | 2017-10-22 23:01 | History and Physical Report ---
History of Present Illness Date of examination: 10/22/17 Date of admission: 10/22/17 15:03 Chief complaint: Chief complaint: left-sided weakness since 8 AM History of present illness: History of Present Illness: 57-year-old female with history of peripheral neuropathy diabetes , peripheral vascular disease , gastroesophageal reflux disease, insulin-dependent diabetes , and pancreatic insufficiency comes in for left-sided weakness and slurred speech since 8 AM. This is the first episode. Symptoms resolved while in the emergency room. Code stroke was Called and canceled. No exacerbating or relieving factors. No fever or chills. No shortness of breath. No recent travel. Patient is a history of claudication and right lower extremity mechanical thrombectomy and on systemic anticoagulation now. . Past Medical History Previous Medical History?: Yes Hx Diabetes: Yes (I) Hx GERD: Yes Surgical History Past Surgical History?: Yes Hx Cholecystectomy: Yes Social History Smoking Status: Unknown if ever smoked Substance Use Type: None Medications Home Medications: Home Medications Medication Instructions Recorded Confirmed Last Taken Type Insulin Lispro [HumaLOG VIAL] 3 unit SQ AC 08/02/16 04/21/17 04/20/17 History 3 units Lipase/Protease/Amylase [Jason Guerra 2 tab PO AC 08/02/16 04/21/17 04/20/17 History 24,000 Units Capsule] 2 tab Sucralfate 1 tab PO AC 08/02/16 04/21/17 04/20/17 History 1 tab Gabapentin 40 mg PO HS 03/21/17 04/21/17 04/20/17 History 40mg Omeprazole 40 mg PO DAILY 03/21/17 04/21/17 04/20/17 History 40mg Apixaban [Eliquis] 5 mg PO DAILY 04/21/17 04/21/17 04/20/17 History 5mg Medications and Allergies Allergies Allergy/AdvReac Type Severity Reaction Status Date / Time banana Allergy Rash Verified 08/02/16 07:33 peanut Allergy Rash Verified 08/02/16 07:33 Home Medications Medication Instructions Recorded Confirmed Last Taken Type Insulin Lispro [HumaLOG VIAL] 0 unit SQ AC 08/02/16 10/22/17 10/22/17 History Lipase/Protease/Amylase [Jason Guerra 2 tab PO AC 08/02/16 10/22/17 10/22/17 History 24,000 Units Capsule] Sucralfate 1 tab PO AC 08/02/16 10/22/17 10/22/17 History Gabapentin 40 mg PO HS 03/21/17 10/22/17 10/22/17 History Omeprazole 40 mg PO DAILY 03/21/17 10/22/17 10/22/17 History Warfarin [Coumadin] 5 mg PO QDAY 10/22/17 10/22/17 10/22/17 History Review of Systems All systems: negative Constitutional: no weight loss, no weight gain, no fever, no chills, no sweats, no night sweats Ears, nose, mouth and throat: no sore throat, no swelling in mouth, no swelling in throat, no odynophagia Breasts: deferred Cardiovascular: no chest pain, no orthopnea, no palpitations, no rapid/ irregular heart beat, no edema, no syncope, no lightheadedness, no shortness of breath Respiratory: no cough, no cough with sputum, no excessive sputum, no hemoptysis , no shortness of breath, no dyspnea on exertion Gastrointestinal: no abdominal pain, no nausea, no vomiting, no diarrhea, no constipation, no change in bowel habits, no hematemesis, no coffee ground emesis Menstruation: ammenorrhea, no currently menstrual, no premenarcheal, no post hysterectomy Rectal: no pain Musculoskeletal: no neck stiffness, no neck pain, no shooting arm pain, no arm numbness/tingling, no low back pain, no shooting leg pain, no leg numbness/ tingling, no redness of joints Integumentary: no rash, no pruritis, no redness, no sores, no wounds, no jaundice, no boils, no blisters Neurological: weakness Psychiatric: no anxiety, no memory loss, no change in sleep habits, no sleep disturbances, no insomnia Endocrine: no cold intolerance, no heat intolerance, no polyphagia, no excessive thirst, no polydipsia, no polyuria Hematologic/Lymphatic: no easy bruising, no easy bleeding Allergic/Immunologic: no urticaria, no allergic rhinitis, no wheezing Exam - Physical Exam Narrative exam: Lying in bed comfortably - Constitutional Vitals: Temp Pulse Resp BP Pulse Ox 98.7 F 77 18 122/57 100 10/22/17 20:43 10/22/17 20:46 10/22/17 20:43 10/22/17 20:43 10/22/17 20:43 General appearance: Present: no acute distress, well-nourished - EENT Eyes: Present: PERRL ENT: hearing intact, clear oral mucosa - Neck Neck: Present: supple, normal ROM - Respiratory Respiratory effort: normal Respiratory: bilateral: CTA - Cardiovascular Heart rate: 80 Rhythm: regular Heart Sounds: Present: S1 & S2. Absent: rub, click - Extremities Extremities: no ischemia, pulses intact, pulses symmetrical, No edema Peripheral Pulses: within normal limits - Abdominal General gastrointestinal: Present: soft, non-tender, non-distended, normal bowel sounds Female genitourinary: Present: normal - Rectal Rectal Exam: deferred - Integumentary Integumentary: Present: clear, warm, dry - Musculoskeletal Musculoskeletal: gait normal, strength equal bilaterally - Psychiatric Psychiatric: appropriate mood/affect, intact judgment & insight - Neurologic Neurologic: CNII-XII intact, moves all extremities, gait normal - Allied Health Allied health notes reviewed: nursing, case management Results - Labs CBC & Chem 7: 10/22/17 12:21 10/22/17 12:21 Labs: Laboratory Last Values WBC 8.8 K/mm3 (4.5-11.0) 10/22/17 12:21 RBC 2.78 M/mm3 (3.65-5.03) L 10/22/17 12:21 Hgb 7.5 gm/dl (10.1-14.3) L 10/22/17 12:21 Hct 22.9 % (30.3-42.9) L 10/22/17 12:21 MCV 83 fl (79-97) 10/22/17 12:21 MCH 27 pg (28-32) L 10/22/17 12:21 MCHC 33 % (30-34) 10/22/17 12:21 RDW 20.1 % (13.2-15.2) H 10/22/17 12:21 Plt Count 415 K/mm3 (140-440) 10/22/17 12:21 Add Manual Diff Complete 10/22/17 12:21 Total Counted 100 10/22/17 12:21 Seg Neuts % (Manual) 65.0 % (40.0-70.0) 10/22/17 12:21 Band Neutrophils % 1.0 % 10/22/17 12:21 Lymphocytes % (Manual) 27.0 % (13.4-35.0) 10/22/17 12:21 Reactive Lymphs % (Man) 0 % 10/22/17 12:21 Monocytes % (Manual) 3.0 % (0.0-7.3) 10/22/17 12:21 Eosinophils % (Manual) 2.0 % (0.0-4.3) 10/22/17 12:21 Basophils % (Manual) 1.0 % (0.0-1.8) 10/22/17 12:21 Metamyelocytes % 1.0 % 10/22/17 12:21 Myelocytes % 0 % 10/22/17 12:21 Promyelocytes % 0 % 10/22/17 12:21 Blast Cells % 0 % 10/22/17 12:21 Nucleated RBC % 1.0 % (0.0-0.9) H 10/22/17 12:21 Seg Neutrophils # Man 5.7 K/mm3 (1.8-7.7) 10/22/17 12:21 Band Neutrophils # 0.1 K/mm3 10/22/17 12:21 Lymphocytes # (Manual) 2.4 K/mm3 (1.2-5.4) 10/22/17 12:21 Abs React Lymphs (Man) 0.0 K/mm3 10/22/17 12:21 Monocytes # (Manual) 0.3 K/mm3 (0.0-0.8) 10/22/17 12:21 Eosinophils # (Manual) 0.2 K/mm3 (0.0-0.4) 10/22/17 12:21 Basophils # (Manual) 0.1 K/mm3 (0.0-0.1) 10/22/17 12:21 Metamyelocytes # 0.1 K/mm3 10/22/17 12:21 Myelocytes # 0.0 K/mm3 10/22/17 12:21 Promyelocytes # 0.0 K/mm3 10/22/17 12:21 Blast Cells # 0.0 K/mm3 10/22/17 12:21 WBC Morphology Not Reportable 10/22/17 12:21 Hypersegmented Neuts Not Reportable 10/22/17 12:21 Hyposegmented Neuts Not Reportable 10/22/17 12:21 Hypogranular Neuts Not Reportable 10/22/17 12:21 Smudge Cells Not Reportable 10/22/17 12:21 Toxic Granulation Not Reportable 10/22/17 12:21 Toxic Vacuolation Not Reportable 10/22/17 12:21 Dohle Bodies Not Reportable 10/22/17 12:21 Pelger-Huet Anomaly Not Reportable 10/22/17 12:21 Maddy Rods Not Reportable 10/22/17 12:21 Platelet Estimate Appears normal 10/22/17 12:21 Clumped Platelets Not Reportable 10/22/17 12:21 Plt Clumps, EDTA Not Reportable 10/22/17 12:21 Large Platelets Few 10/22/17 12:21 Giant Platelets Not Reportable 10/22/17 12:21 Platelet Satelliting Not Reportable 10/22/17 12:21 Plt Morphology Comment Not Reportable 10/22/17 12:21 RBC Morphology Not Reportable 10/22/17 12:21 Dimorphic RBCs Not Reportable 10/22/17 12:21 Polychromasia Not Reportable 10/22/17 12:21 Hypochromasia 2+ 10/22/17 12:21 Poikilocytosis 3+ 10/22/17 12:21 Anisocytosis 2+ 10/22/17 12:21 Microcytosis 2+ 10/22/17 12:21 Macrocytosis Not Reportable 10/22/17 12:21 Spherocytes Not Reportable 10/22/17 12:21 Pappenheimer Bodies Not Reportable 10/22/17 12:21 Sickle Cells Not Reportable 10/22/17 12:21 Target Cells 1+ 10/22/17 12:21 Tear Drop Cells Not Reportable 10/22/17 12:21 Ovalocytes 1+ 10/22/17 12:21 Helmet Cells Not Reportable 10/22/17 12:21 [place] Bodies Not Reportable 10/22/17 12:21 [place] Rings Not Reportable 10/22/17 12:21 Kat[place] Cells 1+ 10/22/17 12:21 Bite Cells Not Reportable 10/22/17 12:21 Crenated Cell Not Reportable 10/22/17 12:21 Elliptocytes 1+ 10/22/17 12:21 Acanthocytes (Spur) 2+ 10/22/17 12:21 Rouleaux Not Reportable 10/22/17 12:21 Hemoglobin C Crystals Not Reportable 10/22/17 12:21 Schistocytes Few 10/22/17 12:21 Malaria parasites Not Reportable 10/22/17 12:21 Bernard Bodies Not Reportable 10/22/17 12:21 Hem Pathologist Commnt No 10/22/17 12:21 PT 24.8 Sec. (12.2-14.9) H 10/22/17 12:21 INR 2.09 (0.87-1.13) H 10/22/17 12:21 APTT 34.0 Sec. (24.2-36.6) 10/22/17 12:21 Thrombin Time 18.0 Sec. (15.1-19.6) 10/22/17 12:21 Sodium 143 mmol/L (137-145) 10/22/17 12:21 Potassium 4.1 mmol/L (3.6-5.0) 10/22/17 12:21 Chloride 103.7 mmol/L (98-107) 10/22/17 12:21 Carbon Dioxide 26 mmol/L (22-30) 10/22/17 12:21 Anion Gap 17 mmol/L 10/22/17 12:21 BUN 10 mg/dL (7-17) 10/22/17 12:21 Creatinine 0.8 mg/dL (0.7-1.2) 10/22/17 12:21 Estimated GFR > 60 ml/min 10/22/17 12:21 BUN/Creatinine Ratio 13 % 10/22/17 12:21 Glucose 184 mg/dL (65-100) H 10/22/17 12:21 POC Glucose 113 (70-105) H 10/22/17 21:08 Calcium 9.2 mg/dL (8.4-10.2) 10/22/17 12:21 Troponin T < 0.010 ng/mL (0.00-0.029) 10/22/17 12:21 Short CBC 10/22/17 Range/Units 12:21 WBC 8.8 (4.5-11.0) K/mm3 Hgb 7.5 L (10.1-14.3) gm/dl Hct 22.9 L (30.3-42.9) % Plt Count 415 (140-440) K/mm3 [facility] 10/22/17 12:21 Sodium 143 Potassium 4.1 Chloride 103.7 Carbon Dioxide 26 BUN 10 Creatinine 0.8 Glucose 184 H Calcium 9.2 Cardiac Enzymes 10/22/17 Range/Units 12:21 Troponin T < 0.010 (0.00-0.029) ng/mL - Imaging and Cardiology EKG: report reviewed Imaging and Cardiology: Head CT IMPRESSION: Cranial CT scan within normal limits Assessment and Plan Assessment and plan: Full code Advance Directives: Yes VTE prophylaxis?: Chemical Plan of care discussed with patient/family: Yes - Patient Problems (1) TIA (transient ischemic attack) Current Visit: Yes Status: Acute Qualifiers: Transient cerebral ischemia type: carotid artery syndrome (hemispheric) Qualified Code(s): G45.1 - Carotid artery syndrome (hemispheric) Plan to address problem: Signs and symptoms consistent with TIA Symptoms are resolved completely in the emergency room Will get MRI/MRA carotid duplex scan and echocardiogram (2) Peripheral vascular disease Current Visit: Yes Status: Chronic Plan to address problem: Continue Coumadin Pro time therapeutic (3) Gastroesophageal reflux disease Current Visit: Yes Status: Chronic Qualifiers: Esophagitis presence: with esophagitis Qualified Code(s): K21.0 - Gastro- esophageal reflux disease with esophagitis Plan to address problem: Continue sucralfate and PPIs (4) Insulin dependent diabetes mellitus Current Visit: Yes Status: Chronic Plan to address problem: ontinue insulin coverage Check hemoglobin A1c (5) Pancreatic insufficiency Current Visit: Yes Status: Chronic Plan to address problem: continue pancreatic enzymes Creon 2 tablets before meals (6) Peripheral neuropathy Current Visit: Yes Status: Chronic Qualifiers: Peripheral neuropathy type: polyneuropathy, unspecified Qualified Code(s): G62.9 - Polyneuropathy, unspecified Plan to address problem: continue gabapentin (7) Anemia Current Visit: Yes Status: Chronic Qualifiers: Anemia type: iron deficiency Plan to address problem: secondary to iron deficiency Check iron levels folic acids B12 levels Continue ferrous sulfate (8) DVT prophylaxis Current Visit: Yes Status: Chronic Plan to address problem: Patient already on Coumadin and INR therapeutic
[2017-10-22] MEDS ORDERED: TYLENOL PO PRN (23:26)
[2017-10-22] MEDS ORDERED: ZOFRAN IV PRN (23:26)
[2017-10-22] MEDS ORDERED: SODIUM CHLORIDE FLUSH SYRINGE 10 ML IV PRN (23:26)
[2017-10-22] MEDS ORDERED: MORPHINE IV PRN (23:27)
[2017-10-22] MEDS ORDERED: PERCOCET 5/325 PO PRN (23:27)
[2017-10-22] MEDS ORDERED: SODIUM CHLORIDE FLUSH SYRINGE 10 ML INJ PRN (23:33)
[2017-10-22] MEDS ORDERED: APRESOLINE IV PRN (23:33)
[2017-10-22] MEDS ORDERED: NEURONTIN PO SCH (23:45)
[2017-10-22] MEDS ORDERED: NACL 0.9% 1000 ML 1,000 ML IV SCH (23:45)
[2017-10-23] MEDS: NEURONTIN PO SCH ×4 (00:45→22:33)
[2017-10-23 07:29] LABS: Alanine Aminotransferase 15 units/L (7-56); Albumin 3.3 g/dL (3.9-5); BUN/Creatinine Ratio 17; Blood Urea Nitrogen 10 mg/dL (7-17); Chol/HDL Ratio 1.55 %; HDL Cholesterol 87 mg/dL (40-59); Hemolysis Index 14; LDL Cholesterol,Direct 54 mg/dL (50-130)
[2017-10-23 07:37] LABS: Red Blood Count 2.39 M/mm3 (3.65-5.03)
[2017-10-23 07:38] LABS: Hemoglobin 6.3 gm/dl (10.1-14.3); Mean Corpuscular HGB Conc 32 % (30-34); Mean Corpuscular Hemoglobin 26 pg (28-32); Mean Corpuscular Volume 82 fl (79-97); Mean Platelet Volume 8.9 fl (6-12); Platelet Count 362 K/mm3 (140-440); Red Cell Distribution Width 19.4 % (13.2-15.2)
[2017-10-23 07:42] LABS: Hematocrit 19.5 % (30.3-42.9)
[2017-10-23 08:55] LABS: Anisocytosis 2+; Hypochromasia 2+; Poikilocytosis 3+; Schistocytes 1+; Target Cells 1+; Total Cells Counted 100
[2017-10-23 08:56] LABS: Burr Cells 1+; Platelet Estimate Consistent w Auto
[2017-10-23] MEDS ORDERED: NACL 0.9% 500 ML 500 ML IV NR (09:30)
[2017-10-23] MEDS: PANCREAZE DR 10,500 UNIT PO SCH ×3 (10:41→17:14)
[2017-10-23] MEDS: CARAFATE PO SCH ×3 (10:42→17:14)
[2017-10-23] MEDS: PROTONIX PO SCH (10:43)
[2017-10-23] MEDS: HumaLOG SUB-Q SCH ×4 (10:44→22:36)
--- NOTE | 2017-10-23 10:56 | Progress Note ---
Assessment and Plan 57-year-old female with history of peripheral neuropathy diabetes , peripheral vascular disease , gastroesophageal reflux disease, insulin-dependent diabetes , and pancreatic insufficiency comes in for left-sided weakness and slurred speech since 8 AM. This is the first episode. Symptoms resolved while in the emergency room. Code stroke was Called and canceled. No exacerbating or relieving factors. No fever or chills. No shortness of breath. No recent travel. Patient is a history of claudication and right lower extremity mechanical thrombectomy and on systemic anticoagulation now. TIA Peripheral vascular disease GERD Insulin dependent DM Pancreatic insufficiency Peripheral neuropathy Anemia DVT prophylaxis Plan ER CT head was normal MRI head indicated no acute changes and some chronic white matter changes MRA head to be done Echo done to be reported with EF ~65% Carotid duplex done to be reported Continue Coumadin and INR checks Continue sucralfate and PPIs Continue insulin coverage with A1c of 8.9 Continue pancreatic enzymes Creon 2 tablets before meals Continue gabapentin Anemia worsening, blood transfusion and continue ferrous sulfate pending iron studies, folate, B12 Overnight stay with plan to d/c on 10/24 Subjective Date of service: 10/23/17 Principal diagnosis: Transient ischemic attack Interval history: Visited pt with male family member present. Discussed that imaging indicated no neurological damage. Explained diagnosis of TIA. Discussed further management of DM. Discussed d/c will likely be 10/24 to allow an additional night of observation. Patient and family verbalized understanding. Objective - Constitutional Vitals: Vital Signs - 12hr 10/23/17 10/23/17 00:23 05:12 Temperature 98.4 F 98.1 F Pulse Rate 76 Respiratory 18 18 Rate Blood Pressure 113/35 94/39 O2 Sat by Pulse 99 Oximetry General appearance: Present: no acute distress, well-nourished - EENT Eyes: PERRL, EOM intact ENT: hearing intact, clear oral mucosa Ears: bilateral: normal - Neck Neck: supple, normal ROM - Respiratory Respiratory effort: normal Respiratory: bilateral: CTA - Breasts Breasts: normal - Cardiovascular Rhythm: regular Heart Sounds: Present: S1 & S2. Absent: gallop, rub Extremities: pulses intact, No edema, normal color, Full ROM - Gastrointestinal General gastrointestinal: Present: soft, non-tender, non-distended, normal bowel sounds - Genitourinary Female genitourinary: normal - Integumentary Integumentary: clear, warm, dry - Musculoskeletal Musculoskeletal: 1, strength equal bilaterally - Neurologic Neurologic: moves all extremities, gait normal - Psychiatric Psychiatric: memory intact, appropriate mood/affect, intact judgment & insight - Labs CBC & Chem 7: 10/23/17 06:22 10/23/17 06:22 Labs: Abnormal lab results 10/22/17 10/22/17 10/22/17 Range/Units 12:21 12:21 12:21 RBC 2.78 L (3.65-5.03) M/mm3 Hgb 7.5 L (10.1-14.3) gm/dl Hct 22.9 L (30.3-42.9) % MCH 27 L (28-32) pg RDW 20.1 H (13.2-15.2) % Seg Neuts % (Manual) (40.0-70.0) % Lymphocytes % (Manual) (13.4-35.0) % Basophils % (Manual) (0.0-1.8) % Nucleated RBC % 1.0 H (0.0-0.9) % PT 24.8 H (12.2-14.9) Sec. INR 2.09 H (0.87-1.13) Chloride (98-107) mmol/L Creatinine (0.7-1.2) mg/dL Glucose 184 H (65-100) mg/dL POC Glucose (70-105) Hemoglobin A1c (4-6) % Total Protein (6.3-8.2) g/dL Albumin (3.9-5) g/dL HDL Cholesterol (40-59) mg/dL 10/22/17 10/22/17 10/22/17 Range/Units 12:30 21:08 23:53 RBC (3.65-5.03) M/mm3 Hgb (10.1-14.3) gm/dl Hct (30.3-42.9) % MCH (28-32) pg RDW (13.2-15.2) % Seg Neuts % (Manual) (40.0-70.0) % Lymphocytes % (Manual) (13.4-35.0) % Basophils % (Manual) (0.0-1.8) % Nucleated RBC % (0.0-0.9) % PT (12.2-14.9) Sec. INR (0.87-1.13) Chloride (98-107) mmol/L Creatinine (0.7-1.2) mg/dL Glucose (65-100) mg/dL POC Glucose 198 H 113 H (70-105) Hemoglobin A1c 8.7 H (4-6) % Total Protein (6.3-8.2) g/dL Albumin (3.9-5) g/dL HDL Cholesterol (40-59) mg/dL 10/23/17 10/23/17 10/23/17 Range/Units 06:22 06:22 07:10 RBC 2.39 L (3.65-5.03) M/mm3 Hgb 6.3 L (10.1-14.3) gm/dl Hct 19.5 L* (30.3-42.9) % MCH 26 L (28-32) pg RDW 19.4 H (13.2-15.2) % Seg Neuts % (Manual) 37.0 L (40.0-70.0) % Lymphocytes % (Manual) 52.0 H (13.4-35.0) % Basophils % (Manual) 2.0 H (0.0-1.8) % Nucleated RBC % (0.0-0.9) % PT (12.2-14.9) Sec. INR (0.87-1.13) Chloride 107.1 H (98-107) mmol/L Creatinine 0.6 L (0.7-1.2) mg/dL Glucose 131 H (65-100) mg/dL POC Glucose 109 H (70-105) Hemoglobin A1c (4-6) % Total Protein 5.6 L (6.3-8.2) g/dL Albumin 3.3 L (3.9-5) g/dL HDL Cholesterol 87 H (40-59) mg/dL 10/23/17 Range/Units 09:19 RBC (3.65-5.03) M/mm3 Hgb (10.1-14.3) gm/dl Hct (30.3-42.9) % MCH (28-32) pg RDW (13.2-15.2) % Seg Neuts % (Manual) (40.0-70.0) % Lymphocytes % (Manual) (13.4-35.0) % Basophils % (Manual) (0.0-1.8) % Nucleated RBC % (0.0-0.9) % PT (12.2-14.9) Sec. INR (0.87-1.13) Chloride (98-107) mmol/L Creatinine (0.7-1.2) mg/dL Glucose (65-100) mg/dL POC Glucose 41 L (70-105) Hemoglobin A1c (4-6) % Total Protein (6.3-8.2) g/dL Albumin (3.9-5) g/dL HDL Cholesterol (40-59) mg/dL - Imaging and cardiology CT Scan - head: image reviewed (normal) MRI - head: image reviewed (no acute change, nonspecific chronic white matter changes)
[2017-10-23] MEDS: SODIUM CHLORIDE FLUSH SYRINGE 10 ML IV SCH ×2 (11:06→22:26)
[2017-10-23] MEDS ORDERED: COUMADIN PO SCH (17:00)
[2017-10-23] MEDS ORDERED: NACL 0.9% 500 ML IV ONE (23:08)
[2017-10-24] MEDS: NEURONTIN PO SCH (00:08)
[2017-10-24 00:48] LABS: % Iron Saturation 17.48 %
--- NOTE | 2017-10-24 01:53 | Consultation ---
NEUROLOGICAL CONSULTATION REASON FOR CONSULTATION: Possible stroke. HISTORY OF PRESENT ILLNESS: History obtained from the patient, however, she did not seem to know what exactly happened to her. She was telling me that yesterday she passed out, but according to the notes it was a different story. She actually did not pass out, but she was just incomprehensible. Then, they found the blood sugar to be only 41. She was n.p.o. for some kind of blood tests and then she has a pump and they were not sure whether this has insulin or not and then she was treated. On her evaluation, it was found that she has severe anemia with hemoglobin of about 6. The patient denied any known bleeding. No hemoptysis, hematemesis, or melena. She has not noticed any change in the color of her stools. She does not have any evidence of bleeding anywhere. The reason why the patient was admitted here; however, because she had left-sided weakness and dysarthria since 8 o'clock yesterday morning the day of admission and this is the first time that this happened to her. However, this resolved while she was in the Emergency Room. Other than that, she has no other complaints. She has some occasional claudication and with mechanical thrombectomy and she was on anticoagulation. She has been followed by a doctor . PAST MEDICAL HISTORY: The patient has diabetes, GERD. No known anemia. The patient had not noticed any symptoms, but she said she is just always weak. There is no change in the color of her stool. PAST SURGICAL HISTORY: The patient has cholecystectomy. SOCIAL HISTORY: The patient does not smoke nor drink alcohol, no drugs. ALLERGIES: No known allergies. MEDICATIONS: The patient is on insulin, lipase, sucralfate, gabapentin, omeprazole, and . PHYSICAL EXAMINATION: GENERAL: Revealed a well-developed, well-nourished female who is now receiving blood. VITAL SIGNS: Temperature was 98.7, pulse rate 77, respirations 18, blood pressure 122/57, pulse oximetry is 100. Generally, she looks fine. She just looks pale. She is currently receiving blood. No intracranial or intraorbital bruit. NECK: Supple. No carotid bruit. HEART: Regular rate and rhythm. LUNGS: Sounds clear. ABDOMEN: Soft, slightly tender. She has hyperactive bowel sounds. EXTREMITIES: Appeared externally normal. She has pallor in the nailbeds. NEUROLOGIC: Revealed the patient is awake, alert. Mental status was normal. No evidence of dementia. No encephalopathy. Cranial nerve examination was normal. Motor examination was normal, 5/5 strength in the upper and lower extremities. Sensory testing was normal. Coordination was intact. Reflexes symmetrical on both sides. No pathological reflexes. The patient is ambulatory. CLINICAL IMPRESSION: 1. The patient has a history of transient ischemic attack. This is transient. 2. The patient has a passing out spell, which I believe is secondary to a combination of hypoglycemia and also anemia. 3. Transient ischemic attack may be related to hypoglycemia and anemia and certainly a combination of both. She may have symmetrical arteriosclerosis in the brain that made one's hemisphere symptomatic. 4. Symptoms does not appear to be a seizure. RECOMMENDATION: The patient had an MRI of the brain, which was described to be normal. She should have also a carotid ultrasound and 2D echo. She should be checked for any site of bleeding, especially the stools. The patient had some hyperactive bowel sounds and tenderness in the abdomen. We should check the stool for guaiac test or for any blood. Right now, the patient is being transfused. Thank you for this referral. Sixty minutes involved in the history and physical examination and more than 50% in the coordination of care and discussion with the patient. JOB# [id number] JAQUELINE/LAURI
[2017-10-24 08:12] LABS: Hematocrit 29.8 % (30.3-42.9); Hemoglobin 9.9 gm/dl (10.1-14.3); Mean Corpuscular HGB Conc 33 % (30-34); Mean Corpuscular Hemoglobin 28 pg (28-32); Mean Corpuscular Volume 84 fl (79-97); Platelet Count 336 K/mm3 (140-440); Red Blood Count 3.54 M/mm3 (3.65-5.03); Red Cell Distribution Width 17.6 % (13.2-15.2)
[2017-10-24 08:56] LABS: INR > 17.67 (0.87-1.13)
[2017-10-24] MEDS: HumaLOG SUB-Q SCH ×2 (09:38→12:38)
[2017-10-24 10:58] LABS: INR 1.87 (0.87-1.13)
--- NOTE | 2017-10-24 11:06 | Gastroenterology Consultation ---
<MONIKAMILADCHANDNI ROLON - Last Filed: 10/24/17 11:14> History of Present Illness - Reason for Consult Consult date: 10/24/17 Anemia Requesting physician: EDGAR PANDYA - History of Present Illness Ms Mascorro is a 57 y/o female admitted after a syncopal episode. ON admission to the hospital she was worked up for TIA and found to be anemic. 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 She was recently at [facility] and seen by GI and underwent EGD with gastric ulcers requiring clip ( per pt report) She also reports a colonoscopy in 2013. She is on coumadin for clot in right lower ext with anticipation of mechanical thrombectomy in the near future. She is on Prilosec daily. She notes that she has been anemic since high school, as well as a family hx with siblings that are anemic. She denies melena, hematochezia, Hematemesis, abdominal pain or weight loss. We have been asked to see the patient for anemia. Past History Past Medical History: anemia, cancer, diabetes, other (clot lower ext.) Past Surgical History: cholecystectomy, Other (whipple, surgery for sarcoma) Social history: , lives with family Family history: other (anemia with siblings) Medications and Allergies Allergies Allergy/AdvReac Type Severity Reaction Status Date / Time banana Allergy Rash Verified 08/02/16 07:33 peanut Allergy Rash Verified 08/02/16 07:33 Home Medications Medication Instructions Recorded Confirmed Last Taken Type Insulin Lispro [HumaLOG VIAL] 0 unit SQ AC 08/02/16 10/22/17 10/22/17 History Lipase/Protease/Amylase [Creon Dr 2 tab PO AC 08/02/16 10/22/17 10/22/17 History 24,000 Units Capsule] Sucralfate 1 tab PO AC 08/02/16 10/22/17 10/22/17 History Gabapentin 40 mg PO HS 03/21/17 10/22/17 10/22/17 History Omeprazole 40 mg PO DAILY 03/21/17 10/22/17 10/22/17 History Warfarin [Coumadin] 5 mg PO QDAY 10/22/17 10/22/17 10/22/17 History Active Meds: Active Medications Acetaminophen (Tylenol) 650 mg PO Q4H PRN PRN Reason: Pain MILD(1-3)/Fever >100.5/HOGAN Lipase/Protease/Amylase (Pancreaze Dr 10,500 Unit) 2 each PO AC [facility] Last Admin: 10/23/17 17:14 Dose: 2 each Atorvastatin Calcium (Lipitor) 40 mg PO QHS [facility] Last Admin: 10/23/17 22:24 Dose: 40 mg Gabapentin (Neurontin) 100 mg PO Q8H [facility] Last Admin: 10/24/17 00:08 Dose: Not Given Hydralazine HCl (Apresoline) 5 mg IV Q6H PRN PRN Reason: Keep SBP between 160-185 mm Hg Insulin Human Lispro (Humalog) 0 unit SUB-Q [facility]; Protocol Last Admin: 10/24/17 09:38 Dose: Not Given Morphine Sulfate (Morphine) 2 mg IV Q4H PRN PRN Reason: Pain, Moderate (4-6) Ondansetron HCl (Zofran) 4 mg IV Q8H PRN PRN Reason: Nausea And Vomiting Oxycodone/Acetaminophen (Percocet 5/325) 1 tab PO Q6H PRN PRN Reason: Pain, Moderate (4-6) Pantoprazole Sodium (Protonix) 40 mg PO DAILY [facility] Last Admin: 10/23/17 10:43 Dose: 40 mg Sodium Chloride (Sodium Chloride Flush Syringe 10 Ml) 10 ml IV BID [facility] Last Admin: 10/23/17 22:26 Dose: 10 ml Sodium Chloride (Sodium Chloride Flush Syringe 10 Ml) 10 ml IV PRN PRN PRN Reason: LINE FLUSH Sucralfate (Carafate) 1 gm PO [facility] Last Admin: 10/23/17 17:14 Dose: 1 gm Warfarin Sodium (Coumadin) 5 mg PO QDAY@1700 [facility]; Protocol Review of Systems - Review of Systems All systems: negative Constitutional: fatigue Neurological: other (syncopal episode. ) Exam - Constitutional Vital Signs: Temp Pulse Resp BP Pulse Ox 98.1 F 76 18 134/63 99 10/24/17 08:24 10/24/17 08:24 10/24/17 08:24 10/24/17 08:24 10/24/17 08:24 General appearance: no acute distress - EENT Eyes: EOM intact ENT: hearing intact - Neck Neck: supple - Respiratory Respiratory: bilateral: CTA - Cardiovascular Rhythm: regular Heart Sounds: Present: S1 & S2 Extremities: pulses intact - Gastrointestinal General gastrointestinal: Present: soft, non-tender, non-distended - Integumentary Integumentary: Present: warm, dry - Neurologic Neurological: alert and oriented x3 - Psychiatric Psychiatric: appropriate mood/affect, cooperative - Labs CBC & Chem 7: 10/24/17 07:13 10/23/17 06:22 Lab Results: Laboratory Results - last 24 hr 10/23/17 10/23/17 10/23/17 11:04 11:21 13:37 WBC RBC Hgb Hct MCV MCH MCHC RDW Plt Count Lymph % (Auto) Seg Neutrophils % PT INR POC Glucose 207 H 412 H Iron TIBC % Saturation Transferrin Blood Type B POSITIVE Antibody Screen Negative Crossmatch See Detail 10/23/17 10/23/17 10/23/17 18:01 21:02 23:48 WBC RBC Hgb Hct MCV MCH MCHC RDW Plt Count Lymph % (Auto) Seg Neutrophils % PT INR POC Glucose 280 H 133 H Iron 57 TIBC 326 % Saturation 17.48 Transferrin 283 Blood Type Antibody Screen Crossmatch 10/24/17 10/24/17 10/24/17 06:29 07:13 07:13 WBC 7.3 RBC 3.54 L Hgb 9.9 L D Hct 29.8 L D MCV 84 MCH 28 MCHC 33 RDW 17.6 H Plt Count 336 Lymph % (Auto) Police Chief Deputy Seg Neutrophils % Police Chief Deputy PT < 10.0 L INR > 17.67 H* POC Glucose 87 Iron TIBC % Saturation Transferrin Blood Type Antibody Screen Crossmatch 10/24/17 10:17 WBC RBC Hgb Hct MCV MCH MCHC RDW Plt Count Lymph % (Auto) Seg Neutrophils % PT 22.7 H INR 1.87 H POC Glucose Iron TIBC % Saturation Transferrin Blood Type Antibody Screen Crossmatch Assessment and Plan 1. Anemia- chronic -H/H decreased on admission -s/p transfusion -Pt with hx of anemia for several years. -Check FOBT -Per pt, recent EGD at [place] with clip of ulcer (gastric?) -Recommend rechecking INR ( ?>17) as pt has not been on Warfarin since admission -Noted pt is for future mechanical thrombectomy. - Iron studies are WNL. <IHSAN,TEMITOPE R - Last Filed: 10/24/17 11:28> Medications and Allergies Active Meds: Active Medications Acetaminophen (Tylenol) 650 mg PO Q4H PRN PRN Reason: Pain MILD(1-3)/Fever >100.5/HOGAN Lipase/Protease/Amylase (Pancreaze Dr 10,500 Unit) 2 each PO AC [facility] Last Admin: 10/23/17 17:14 Dose: 2 each Atorvastatin Calcium (Lipitor) 40 mg PO QHS [facility] Last Admin: 10/23/17 22:24 Dose: 40 mg Gabapentin (Neurontin) 100 mg PO Q8H [facility] Last Admin: 10/24/17 00:08 Dose: Not Given Hydralazine HCl (Apresoline) 5 mg IV Q6H PRN PRN Reason: Keep SBP between 160-185 mm Hg Insulin Human Lispro (Humalog) 0 unit SUB-Q [facility]; Protocol Last Admin: 10/24/17 09:38 Dose: Not Given Morphine Sulfate (Morphine) 2 mg IV Q4H PRN PRN Reason: Pain, Moderate (4-6) Ondansetron HCl (Zofran) 4 mg IV Q8H PRN PRN Reason: Nausea And Vomiting Oxycodone/Acetaminophen (Percocet 5/325) 1 tab PO Q6H PRN PRN Reason: Pain, Moderate (4-6) Pantoprazole Sodium (Protonix) 40 mg PO DAILY [facility] Last Admin: 10/23/17 10:43 Dose: 40 mg Sodium Chloride (Sodium Chloride Flush Syringe 10 Ml) 10 ml IV BID [facility] Last Admin: 10/23/17 22:26 Dose: 10 ml Sodium Chloride (Sodium Chloride Flush Syringe 10 Ml) 10 ml IV PRN PRN PRN Reason: LINE FLUSH Sucralfate (Carafate) 1 gm PO AC [facility] Last Admin: 10/23/17 17:14 Dose: 1 gm Warfarin Sodium (Coumadin) 5 mg PO QDAY@1700 [facility]; Protocol Exam - Constitutional Vital Signs: Temp Pulse Resp BP Pulse Ox 98.1 F 76 18 134/63 99 10/24/17 08:24 10/24/17 08:24 10/24/17 08:24 10/24/17 08:24 10/24/17 08:24 - Labs CBC & Chem 7: 10/24/17 07:13 10/23/17 06:22 Lab Results: Laboratory Results - last 24 hr 10/23/17 10/23/17 10/23/17 11:21 13:37 18:01 WBC RBC Hgb Hct MCV MCH MCHC RDW Plt Count Lymph % (Auto) Add Manual Diff Total Counted Seg Neutrophils % Seg Neuts % (Manual) Band Neutrophils % Lymphocytes % (Manual) Reactive Lymphs % (Man) Monocytes % (Manual) Eosinophils % (Manual) Basophils % (Manual) Metamyelocytes % Myelocytes % Promyelocytes % Blast Cells % Nucleated RBC % Seg Neutrophils # Man Band Neutrophils # Lymphocytes # (Manual) Abs React Lymphs (Man) Monocytes # (Manual) Eosinophils # (Manual) Basophils # (Manual) Metamyelocytes # Myelocytes # Promyelocytes # Blast Cells # WBC Morphology Hypersegmented Neuts Hyposegmented Neuts Hypogranular Neuts Smudge Cells Toxic Granulation Toxic Vacuolation Dohle Bodies Pelger-Huet Anomaly Maddy Rods Platelet Estimate Clumped Platelets Plt Clumps, EDTA Large Platelets Giant Platelets Platelet Satelliting Plt Morphology Comment RBC Morphology Dimorphic RBCs Polychromasia Hypochromasia Poikilocytosis Anisocytosis Microcytosis Macrocytosis Spherocytes Pappenheimer Bodies Sickle Cells Target Cells Tear Drop Cells Ovalocytes Helmet Cells Harden-Igiugig Bodies [place] Rings Wanda Cells Bite Cells Crenated Cell Elliptocytes Acanthocytes (Spur) Rouleaux Hemoglobin C Crystals Schistocytes Malaria parasites Bernard Bodies Hem Pathologist Commnt PT INR POC Glucose 412 H 280 H Iron TIBC % Saturation Transferrin Blood Type B POSITIVE Antibody Screen Negative Crossmatch See Detail 10/23/17 10/23/17 10/24/17 21:02 23:48 06:29 WBC RBC Hgb Hct MCV MCH MCHC RDW Plt Count Lymph % (Auto) Add Manual Diff Total Counted Seg Neutrophils % Seg Neuts % (Manual) Band Neutrophils % Lymphocytes % (Manual) Reactive Lymphs % (Man) Monocytes % (Manual) Eosinophils % (Manual) Basophils % (Manual) Metamyelocytes % Myelocytes % Promyelocytes % Blast Cells % Nucleated RBC % Seg Neutrophils # Man Band Neutrophils # Lymphocytes # (Manual) Abs React Lymphs (Man) Monocytes # (Manual) Eosinophils # (Manual) Basophils # (Manual) Metamyelocytes # Myelocytes # Promyelocytes # Blast Cells # WBC Morphology Hypersegmented Neuts Hyposegmented Neuts Hypogranular Neuts Smudge Cells Toxic Granulation Toxic Vacuolation Dohle Bodies Pelger-Huet Anomaly Maddy Rods Platelet Estimate Clumped Platelets Plt Clumps, EDTA Large Platelets Giant Platelets Platelet Satelliting Plt Morphology Comment RBC Morphology Dimorphic RBCs Polychromasia Hypochromasia Poikilocytosis Anisocytosis Microcytosis Macrocytosis Spherocytes Pappenheimer Bodies Sickle Cells Target Cells Tear Drop Cells Ovalocytes Helmet Cells Harden-Igiugig Bodies [place] Rings Wanda Cells Bite Cells Crenated Cell Elliptocytes Acanthocytes (Spur) Rouleaux Hemoglobin C Crystals Schistocytes Malaria parasites Bernard Bodies Hem Pathologist Commnt PT INR POC Glucose 133 H 87 Iron 57 TIBC 326 % Saturation 17.48 Transferrin 283 Blood Type Antibody Screen Crossmatch 10/24/17 10/24/17 10/24/17 07:13 07:13 10:17 WBC 7.3 RBC 3.54 L Hgb 9.9 L D Hct 29.8 L D MCV 84 MCH 28 MCHC 33 RDW 17.6 H Plt Count 336 Lymph % (Auto) Police Chief Deputy Add Manual Diff Complete Total Counted 100 Seg Neutrophils % Police Chief Deputy Seg Neuts % (Manual) 38.0 L Band Neutrophils % 0 Lymphocytes % (Manual) 51.0 H Reactive Lymphs % (Man) 0 Monocytes % (Manual) 10.0 H Eosinophils % (Manual) 1.0 Basophils % (Manual) 0 Metamyelocytes % 0 Myelocytes % 0 Promyelocytes % 0 Blast Cells % 0 Nucleated RBC % Not Reportable Seg Neutrophils # Man 2.8 Band Neutrophils # 0.0 Lymphocytes # (Manual) 3.7 Abs React Lymphs (Man) 0.0 Monocytes # (Manual) 0.7 Eosinophils # (Manual) 0.1 Basophils # (Manual) 0.0 Metamyelocytes # 0.0 Myelocytes # 0.0 Promyelocytes # 0.0 Blast Cells # 0.0 WBC Morphology Not Reportable Hypersegmented Neuts Not Reportable Hyposegmented Neuts Not Reportable Hypogranular Neuts Not Reportable Smudge Cells Not Reportable Toxic Granulation Not Reportable Toxic Vacuolation Not Reportable Dohle Bodies Not Reportable Pelger-Huet Anomaly Not Reportable Maddy Rods Not Reportable Platelet Estimate Not Reportable Clumped Platelets Not Reportable Plt Clumps, EDTA Not Reportable Large Platelets Not Reportable Giant Platelets 1+ Platelet Satelliting Not Reportable Plt Morphology Comment Not Reportable RBC Morphology Normal Dimorphic RBCs Not Reportable Polychromasia Not Reportable Hypochromasia Not Reportable Poikilocytosis Not Reportable Anisocytosis Not Reportable Microcytosis Not Reportable Macrocytosis Not Reportable Spherocytes Not Reportable Pappenheimer Bodies Not Reportable Sickle Cells Not Reportable Target Cells Not Reportable Tear Drop Cells Not Reportable Ovalocytes Not Reportable Helmet Cells Not Reportable Harden-Igiugig Bodies Not Reportable [place] Rings Not Reportable [place] Cells Not Reportable Bite Cells Not Reportable Crenated Cell Not Reportable Elliptocytes Not Reportable Acanthocytes (Spur) Not Reportable Rouleaux Not Reportable Hemoglobin C Crystals Not Reportable Schistocytes Not Reportable Malaria parasites Not Reportable Bernard Bodies Not Reportable Hem Pathologist Commnt No PT < 10.0 L 22.7 H INR > 17.67 H* 1.87 H POC Glucose Iron TIBC % Saturation Transferrin Blood Type Antibody Screen Crossmatch Assessment and Plan Pt had EGD at end of 07/2017 at [place], and had clipping of ulcer(s), with small amount of blood noted. She was then seen in f/u by GI at [place] 3 wks ago, and deemed to be doing well, on chronic PPI, and on warfarin. Anemia is NOT iron deficient, and there is no hx of recent GI bleed. 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 At this point, if stool negative for occult blood, and H/H stable, no plans for further GI evaluation. As regards elevated INR, if not spurious, would correct to appropriate therapeutic level.
[2017-10-24 11:23] LABS: Basophils % (Manual) 0 % (0.0-1.8); Giant Platelets 1+; RBC Morphology Normal; Total Cells Counted 100
[2017-10-24] MEDS: CARAFATE PO SCH ×2 (11:27→11:29)
[2017-10-24] MEDS: PROTONIX PO SCH (11:27)
[2017-10-24] MEDS: PANCREAZE DR 10,500 UNIT PO SCH ×2 (11:27→11:29)
[2017-10-24] MEDS: SODIUM CHLORIDE FLUSH SYRINGE 10 ML IV SCH (11:28)
[2017-10-24 13:06] VITALS: BP 127/64
--- NOTE | 2017-10-24 14:24 | Discharge Summary ---
Providers - Providers Date of Admission: 10/22/17 15:03 Attending physician: CHASIDY GRAYSON MD 10/22/17 Consult to Case Management [CONS] Routine Services Needed at Discharge: Home Health Services Notified:: Case management 10/22/17 12:20 Consult to Physician [CONS] Urgent Comment: Consulting Provider: RAZIA LOPEZ Physician Instructions: Reason For Exam: cva 10/22/17 23:26 Consult to Physician [CONS] Routine Comment: Consulting Provider: ADRIANNA ROQUE Physician Instructions: Reason For Exam: TIA 10/22/17 23:33 Occupational Therapy Evaluate and Treat [CONS] Routine Comment: Reason For Exam: Neuro deficits Physical Therapy Evaluation and Treat [CONS] Routine Comment: Reason For Exam: Neuro deficits 10/24/17 09:57 Consult to Physician [CONS] Routine Comment: Consulting Provider: TEMITOPE CHAMPAGNE Physician Instructions: Reason For Exam: Anemia Primary care physician: [facility] Hospitalization Reason for admission: AMS, anemia, hypoglycemia Condition: Good Disposition: DC-01 TO HOME OR SELFCARE Time spent for discharge: 31 minutes - Discharge Diagnoses (1) Hypoglycemia Status: Acute (2) Anemia Status: Chronic Qualifiers: Anemia type: iron deficiency (3) Gastroesophageal reflux disease Status: Chronic Qualifiers: Esophagitis presence: with esophagitis Qualified Code(s): K21.0 - Gastro- esophageal reflux disease with esophagitis (4) Insulin dependent diabetes mellitus Status: Chronic (5) Peripheral vascular disease Status: Chronic Core Measure Documentation - Palliative Care Palliative Care/ Comfort Measures: Not Applicable - Core Measures Any of the following diagnoses?: none Exam - Physical Exam Narrative exam: Not in cardiopulmonary distress. The patient appeared well nourished and normally developed. Vital signs as documented. Head exam is unremarkable. No scleral icterus . Neck is without jugular venous distension, thyromegaly, or carotid bruits. Lungs are clear to auscultation. Cardiac exam reveals regular rate and Rhythm. First and second heart sounds normal. No murmurs, rubs or gallops. Abdominal exam reveals normal bowel sounds, no masses, no organomegaly and no aortic enlargement. Extremities are nonedematous and both femoral and pedal pulses are normal. 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 No focal weakness. - Constitutional Vitals: Temp Pulse Resp BP Pulse Ox 98.3 F 77 18 127/64 96 10/24/17 11:25 10/24/17 11:25 10/24/17 11:25 10/24/17 11:25 10/24/17 11:25 Plan Activity: no restrictions Weight Bearing Status: Full Weight Bearing Diet: diabetic Additional Instructions: Follow at your PCP in 5-7 days. Patient's GI doctor is at [facility] and advised to have follow up over there. Follow up with: PRIMARY CARE, [Primary Care Provider] - 3-5 Days Forms: Warfarin Discharge Instruction Prescriptions: Pantoprazole [Protonix TAB] 40 mg PO DAILY #30 tablet Sucralfate 1 tab PO AC #30 tablet
== END 2017-10-24 16:05 | disposition home or self-care (01) | DRG 69 ==
LOC: ED 11:53 → 4A 15:03
PROVIDERS: ADMIT Internal Medicine; ATTEND Internal Medicine
PROC: 30233N1 Transfusion of Nonautologous Red Blood Cells into Peripheral Vein, Percutaneous Approach (ICD-10-PCS; principal; 2017-10-23)
DX: G45.9 Transient cerebral ischemic attack, unspecified (principal); Z91.010 Allergy to peanuts; Z91.018 Allergy to other foods; Z79.4 Long term (current) use of insulin; K21.9 Gastro-esophageal reflux disease without esophagitis; Z90.49 Acquired absence of other specified parts of digestive tract; E11.42 Type 2 diabetes mellitus with diabetic polyneuropathy; E11.51 Type 2 diabetes mellitus with diabetic peripheral angiopathy without gangrene; K86.89 Other specified diseases of pancreas; D64.9 Anemia, unspecified; E11.649 Type 2 diabetes mellitus with hypoglycemia without coma
CPT/HCPCS: 36415; 70450; 70544; 70551; 80048; 80053; 80061; 82962; 83036; 83550; 84484; 85007; 85025; 85610; 85670; 85730; 86850; 86900; 86901; 86920; 93005; 93010; 93306; 93880; A9270-GY; G8978-GP; G8979-GP; G8980-GP; J7030; J7040; P9016

== ENCOUNTER 2018-07-19 13:01 | Emergency (ER) | payer OTHER, MEDICARE ==
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
[2018-07-19 13:31] VITALS: BP 151/64
== END 2018-07-19 15:18 | disposition left against medical advice (07) ==
LOC: ED 13:01
DX: R10.10 Upper abdominal pain, unspecified (principal); Z91.018 Allergy to other foods; Z91.010 Allergy to peanuts
CPT/HCPCS: 99282

== ENCOUNTER 2021-10-24 22:34 | Emergency (ER) | payer MEDICARE, OTHER ==
[2021-10-25 00:39] LABS: BUN/Creatinine Ratio 7; Blood Urea Nitrogen 6 mg/dL (7-17); Calcium 9.1 mg/dL (8.4-10.2); Hemolysis Index 7
[2021-10-25 00:42] LABS: Hematocrit 26.9 % (30.3-42.9); Hemoglobin 8.6 gm/dl (10.1-14.3); Mean Corpuscular HGB Conc 32 % (30-34); Mean Corpuscular Volume 88 fl (79-97); Platelet Count 247 K/mm3 (140-440); Red Blood Count 3.07 M/mm3 (3.65-5.03); Red Cell Distribution Width 23.9 % (13.2-15.2)
--- NOTE | 2021-10-25 00:44 | Emergency Department Report ---
ED General Adult HPI - General Stated complaint: HIGH BLOOD SUGAR Time Seen by Provider: 10/24/21 23:47 Source: patient Mode of arrival: Ambulatory Limitations: No Limitations - History of Present Illness Initial comments: low BS in 30s , pt is diabetic on insulin , did't eat on thr right time after taking insulin EMS gave her some gluscose -: Sudden, hour(s) Associated Symptoms: denies: denies other symptoms, confusion, chest pain, diaphoresis, fever/chills Treatments Prior to Arrival: none - Related Data Home Medications Medication Instructions Recorded Confirmed Last Taken Insulin Lispro [HumaLOG VIAL] 0 unit SQ AC 08/02/16 10/22/17 10/22/17 Lipase/Protease/Amylase [Creon Dr 2 tab PO AC 08/02/16 10/22/17 10/22/17 24,000 Unit Capsule] Gabapentin 40 mg PO HS 03/21/17 10/22/17 10/22/17 40 mg Warfarin [Coumadin] 5 mg PO QDAY 10/22/17 10/22/17 10/22/17 Previous Rx's Medication Instructions Recorded Last Taken Type Pantoprazole [Protonix TAB] 40 mg PO DAILY #30 tablet 10/24/17 Unknown Rx Sucralfate 1 tab PO AC #30 tablet 10/24/17 Unknown Rx Allergies Allergy/AdvReac Type Severity Reaction Status Date / Time banana Allergy Rash Verified 08/02/16 07:33 peanut Allergy Rash Verified 08/02/16 07:33 ED Review of Systems ROS: Stated complaint: HIGH BLOOD SUGAR Other details as noted in HPI Constitutional: denies: chills, fever Eyes: denies: eye pain, eye discharge, vision change ENT: denies: ear pain, throat pain Respiratory: denies: cough, shortness of breath, wheezing Cardiovascular: denies: chest pain, palpitations Endocrine: no symptoms reported Gastrointestinal: denies: abdominal pain, nausea, diarrhea Genitourinary: denies: urgency, dysuria, discharge Musculoskeletal: denies: back pain, joint swelling, arthralgia Skin: denies: rash, lesions Neurological: denies: headache, weakness, paresthesias Psychiatric: denies: anxiety, depression Hematological/Lymphatic: denies: easy bleeding, easy bruising ED Past Medical Hx - Past Medical History Hx Congestive Heart Failure: No Hx Diabetes: Yes (I) Hx GERD: Yes Hx Asthma: No Hx COPD: No - Surgical History Hx Cholecystectomy: Yes - Social History Smoking Status: Never Smoker Substance Use Type: None - Medications Home Medications: Home Medications Medication Instructions Recorded Confirmed Last Taken Type Insulin Lispro [HumaLOG VIAL] 0 unit SQ AC 08/02/16 10/22/17 10/22/17 History Lipase/Protease/Amylase [Creon Dr 2 tab PO AC 08/02/16 10/22/17 10/22/17 History 24,000 Unit Capsule] Gabapentin 40 mg PO HS 03/21/17 10/22/17 10/22/17 History 40 mg Warfarin [Coumadin] 5 mg PO QDAY 10/22/17 10/22/17 10/22/17 History Pantoprazole [Protonix TAB] 40 mg PO DAILY #30 tablet 10/24/17 Unknown Rx Sucralfate 1 tab PO AC #30 tablet 10/24/17 Unknown Rx ED Physical Exam - General General appearance: alert, in no apparent distress - Head Head exam: Present: atraumatic, normocephalic - Eye Eye exam: Present: normal appearance - ENT ENT exam: Present: mucous membranes moist - Neck Neck exam: Present: normal inspection - Respiratory Respiratory exam: Present: normal lung sounds bilaterally. Absent: respiratory distress - Cardiovascular Cardiovascular Exam: Present: regular rate, normal rhythm. Absent: systolic murmur, diastolic murmur, rubs, gallop - GI/Abdominal GI/Abdominal exam: Present: soft, normal bowel sounds - Extremities Exam Extremities exam: Present: normal inspection - Back Exam Back exam: Present: normal inspection - Neurological Exam Neurological exam: Present: alert, oriented X3 - Psychiatric Psychiatric exam: Present: normal affect, normal mood - Skin Skin exam: Present: warm, dry, intact, normal color. Absent: rash ED Medical Decision Making - Lab Data Result diagrams: 10/25/21 00:06 - Medical Decision Making pt is awake and alert , tolerating PO BS is 105 Critical care attestation.: If time is entered above; I have spent that time in minutes in the direct care of this critically ill patient, excluding procedure time. ED Disposition Clinical Impression: Hypoglycemia Disposition: HOME / SELF CARE / HOMELESS Is pt being admited?: No Does the pt Need Aspirin: No Condition: Stable Instructions: Preventing Hypoglycemia, Hypoglycemia, [id number] Referrals: PRIMARY CARE, [Primary Care Provider] - 3-5 Days
[2021-10-25 01:13] VITALS: BP 158/80
[2021-10-25 06:11] LABS: Basophils % (Manual) 0 % (0.0-1.8); Total Cells Counted 100
[2021-10-25 06:12] LABS: Anisocytosis 2+
[2021-10-25 06:15] LABS: Burr Cells 1+; Poikilocytosis 2+
[2021-10-25 06:16] LABS: Platelet Estimate Consistent w Auto
== END 2021-10-25 01:15 | disposition home or self-care (01) ==
LOC: ED 22:34
DX: E10.649 Type 1 diabetes mellitus with hypoglycemia without coma (principal); K21.9 Gastro-esophageal reflux disease without esophagitis; Z90.49 Acquired absence of other specified parts of digestive tract; Z79.899 Other long term (current) drug therapy; Z91.010 Allergy to peanuts; Z91.018 Allergy to other foods; Z79.4 Long term (current) use of insulin; Z79.01 Long term (current) use of anticoagulants
CPT/HCPCS: 36415; 80048; 82150; 82962; 85007; 85025; 99283; 99284